=== PATIENT | female | born 1990 | race Caucasian/White ===

== ENCOUNTER 2017-01-17 23:04 | Inpatient (IN) ==
[2017-01-17] MEDS ORDERED: Ondansetron 4 MG/2 ML VIAL IVP ONE (23:34)
[2017-01-17] MEDS ORDERED: Naloxone 0.4 MG/ML INJ IVP ONE (23:34)
[2017-01-17] MEDS ORDERED: 0.9 % Sodium Chloride 1,000 ML IVC ONE (23:34)
--- NOTE | 2017-01-17 23:37 | Emergency Department Note ---
Overdose - Differential Diagnosis Likely: suicide attempt by multiple drug overdose, intentional overdose, accidental drug ingestion - Lab Data Lab results reviewed: Yes I reviewed the patient's lab results. Result diagrams: 01/17/17 23:52 01/17/17 23:52 Lab Results 01/17/17 01/17/17 01/18/17 Range/Units 23:52 23:52 00:41 WBC 6.2 (4.3-11.1) K/mcL RBC 4.59 (3.82-4.97) M/mcL Hgb 14.0 (11.5-15.4) g/dL Hct 41.3 (35.3-44.9) % MCV 90.0 (83.0-100.0) fL MCH 30.5 (28.0-33.3) pg MCHC 33.9 (31.6-35.5) g/dL RDW 12.1 (11.5-14.5) % Plt Count 179 (140-400) K/mcL MPV 9.8 (9.4-12.4) fL Immature Gran % 0.2 (0-4) % Seg Neutrophils % 73.0 % Lymphocytes % 19.9 % Monocytes % 5.7 % Eosinophils % 1.0 % Basophils % 0.2 % Neutrophils # 4.5 (1.6-8.9) K/mcL Lymphocytes # 1.2 (0.6-4.6) K/mcL Monocytes # 0.4 (0.0-1.3) K/mcL Eosinophils # 0.1 (0.0-0.6) K/mcL Basophils # 0.0 (0.0-0.2) K/mcL Sodium 143 (136-145) mEq/L Potassium 3.7 (3.5-4.5) mEq/L Chloride 109 (98-109) mEq/L Carbon Dioxide 25 (19-29) mEq/L BUN 6 L (7-20) mg/dL Creatinine 0.75 (0.57-1.11) mg/dL Est GFR ( Amer) > 60 (> 60) Est GFR (Non-Af Amer) > 60 (> 60) BUN/Creatinine Ratio 8 (6-26) Glucose 94 (70-99) mg/dL Calculated Osmolality 293 (280-300) Calcium 9.3 (8.6-10.8) mg/dL Total Bilirubin 0.4 (0.2-1.2) mg/dL Direct Bilirubin 0.1 (0.0-0.5) mg/dL Indirect Bilirubin 0.3 (0.0-1.2) mg/dL AST 19 (5-34) Units/L ALT 20 (0-55) Units/L Alkaline Phosphatase 43 (38-126) Units/L Serum Total Protein 6.9 (6.0-8.3) g/dL Albumin 3.7 (3.5-5.0) g/dL Globulin 3.2 (2.4-3.5) g/dL Albumin/Globulin Ratio 1.2 (1.1-2.2) Urine Color Yellow (Yellow) Urine Clarity Clear (Clear) Urine pH 7.5 (5.0-8.0) pH Units Ur Specific [place] 1.008 L (1.010-1.025) Urine Protein Negative (Neg-Trace) mg/dL Urine Glucose (UA) Normal (Normal) mg/dL Urine Ketones Negative (Negative) mg/dL Urine Blood Negative (Negative) Urine Nitrite Positive A (Negative) Urine Bilirubin Negative (Negative) Urine Urobilinogen Normal (Normal) mg/dL Ur Leukocyte Esterase Negative (Negative) Urine Microscopic RBC 0-3 (0-3) per hpf Urine Microscopic WBC 0-3 (0-3) per hpf Ur Squamous Epith Cells Few (None-Few) per lpf Urine Bacteria Moderate H (None-Few) per hpf Hyaline Casts None Seen (None-Few) per lpf Urine Yeast Test Not Performed Urine Test (Negative) Salicylates < 5.0 L (15-30) mg/dL Urine Opiates Screen (Tprqiq=608) ng/mL Acetaminophen < 1.0 L (10-30) mcg/mL Ur Barbiturates Screen (Anbsow=031) ng/mL Ur Phencyclidine Scrn (Cutoff=25) ng/mL Ur Amphetamines Screen (Ckvlyh=1590) ng/mL U Benzodiazepines Scrn (Joateu=775) ng/mL Urine Cocaine Screen (Cutoff= 300) ng/mL U Marijuana (THC) Screen (Cutoff = 50) ng/mL Ethyl Alcohol < 10 (0-10) mg/dL 01/18/17 01/18/17 Range/Units 00:41 00:41 WBC (4.3-11.1) K/mcL RBC (3.82-4.97) M/mcL Hgb (11.5-15.4) g/dL Hct (35.3-44.9) % MCV (83.0-100.0) fL MCH (28.0-33.3) pg MCHC (31.6-35.5) g/dL RDW (11.5-14.5) % Plt Count (140-400) K/mcL MPV (9.4-12.4) fL Immature Gran % (0-4) % Seg Neutrophils % % Lymphocytes % % Monocytes % % Eosinophils % % Basophils % % Neutrophils # (1.6-8.9) K/mcL Lymphocytes # (0.6-4.6) K/mcL Monocytes # (0.0-1.3) K/mcL Eosinophils # (0.0-0.6) K/mcL Basophils # (0.0-0.2) K/mcL Sodium (136-145) mEq/L Potassium (3.5-4.5) mEq/L Chloride (98-109) mEq/L Carbon Dioxide (19-29) mEq/L BUN (7-20) mg/dL Creatinine (0.57-1.11) mg/dL Est GFR ( Amer) (> 60) Est GFR (Non-Af Amer) (> 60) BUN/Creatinine Ratio (6-26) Glucose (70-99) mg/dL Calculated Osmolality (280-300) Calcium (8.6-10.8) mg/dL Total Bilirubin (0.2-1.2) mg/dL Direct Bilirubin (0.0-0.5) mg/dL Indirect Bilirubin (0.0-1.2) mg/dL AST (5-34) Units/L ALT (0-55) Units/L Alkaline Phosphatase (38-126) Units/L Serum Total Protein (6.0-8.3) g/dL Albumin (3.5-5.0) g/dL Globulin (2.4-3.5) g/dL Albumin/Globulin Ratio (1.1-2.2) Urine Color (Yellow) Urine Clarity (Clear) Urine pH (5.0-8.0) pH Units Ur Specific [place] (1.010-1.025) Urine Protein (Neg-Trace) mg/dL Urine Glucose (UA) (Normal) mg/dL Urine Ketones (Negative) mg/dL Urine Blood (Negative) Urine Nitrite (Negative) Urine Bilirubin (Negative) Urine Urobilinogen (Normal) mg/dL Ur Leukocyte Esterase (Negative) Urine Microscopic RBC (0-3) per hpf Urine Microscopic WBC (0-3) per hpf Ur Squamous Epith Cells (None-Few) per lpf Urine Bacteria (None-Few) per hpf Hyaline Casts (None-Few) per lpf Urine Yeast Urine Test Negative (Negative) Salicylates (15-30) mg/dL Urine Opiates Screen Positive H (Cvbahy=779) ng/mL Acetaminophen (10-30) mcg/mL Ur Barbiturates Screen Negative (Vqhgux=590) ng/mL Ur Phencyclidine Scrn Negative (Cutoff=25) ng/mL Ur Amphetamines Screen Negative (Cxvegx=9973) ng/mL U Benzodiazepines Scrn Positive H (Csjand=934) ng/mL Urine Cocaine Screen Negative (Cutoff= 300) ng/mL U Marijuana (THC) Screen Negative (Cutoff = 50) ng/mL Ethyl Alcohol (0-10) mg/dL - Radiology Data Radiology results reviewed: Yes I reviewed the patient's radiology results. - EKG Data EKG attestation: Yes I reviewed and interpreted this EKG. Overdose HPI - General Chief Complaint: ED Overdose Stated Complaint: med overdose Time Seen by Provider: 01/17/17 23:33 Source: EMS Mode of arrival: EMS Limitations: altered mental status Nursing Notes Reviewed: Yes Vital Signs Reviewed: Yes - History of Present Illness HPI Narrative: 26-year-old female patient presents to the emergency department after an overdose on benzodiazepines. Patient states that she took approximately 72 mg Xanax. She denies any additional drug or alcohol use. Family at the bedside states that patient has had a history of substance abuse in the past. She denies any recent head injury. She denies any recent illnesses. 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 Constitutional: Denies: fever, chills Cardiovascular: Denies: chest pain Respiratory: Denies: cough, dyspnea Gastrointestinal: Reports: vomiting. Denies: abdominal pain, nausea Musculoskeletal: Denies: back pain, neck pain Integumentary: Denies: rash, abrasion, lesions Neurological: Reports: confusion. Denies: headache Past Medical History - Past Medical History Attestation: Yes The following information was validated with the patient. Source: patient, nursing notes reviewed Medical history: Reports: no medical history Psychiatric history: Reports: anxiety, depression RETINA SUBSPECIALIST history: Reports: no RETINA SUBSPECIALIST history - Social History Smoking Status: Current every day smoker Smokeless Tobacco Status: No Alcohol use: Reports: none Drug use: Reports: opiates, IVDU, other Physical Exam - General Limitations: altered mental status General appearance: alert, anxious, obtunded, other (Somnolent) - Head Head exam: atraumatic, normocephalic, normal inspection - Eye Eye exam: Present: normal appearance, PERRL - ENT ENT exam: normal exam, normal oropharynx, mucous membranes moist - Neck Neck exam: Present: normal inspection, full ROM, trachea midline - Chest Chest inspection: Present: normal inspection, symmetric chest wall rise - Respiratory Respiratory exam: Present: normal lung sounds bilaterally. Absent: respiratory distress - Cardiovascular Cardiovascular exam: Present: regular rate, normal rhythm, normal heart sounds - Extremities Exam Extremities exam: Present: normal inspection, full ROM. Absent: tenderness, pedal edema - Expanded Lower Extremity Exam Gait: observed and normal - Back Exam Back exam: Present: normal inspection, full ROM. Absent: tenderness - Expanded Neurological Exam Patient oriented to: Present: person. Absent: place, time Coma Scale Eye Opening: Spontaneous Coma Scale Motor Response: Obeys Commands Coma Scale Verbal Response: Confused Coma Scale Total: 14 - Psychiatric Psychiatric exam: Present: other (Somnolence but easily arousable to voice.) - Skin Skin exam: Present: warm, dry, intact, normal color Course Course Narrative: I discussed the patient's presentation with poison control. Poison control states that patient should be medically cleared after only taking that amount of benzos with normal labs and a normal EKG. Later I discussed with the hospitalist, Dr. Burroughs, that patient still has not returned to her baseline after 5 hours of observation. Patient will be admitted for further observation and once she returns to her baseline may be evaluated by psychiatry to see if this was not an accidental overdose, rather a suicidal attempt. Vital Signs Temperature 0 F L 01/17/17 23:06 Pulse Rate 82 01/17/17 23:06 Respiratory Rate 16 01/17/17 23:06 Blood Pressure 127/96 01/17/17 23:06 O2 Sat by Pulse Oximetry 97 01/17/17 23:06 Temperature 97.4 F L 01/18/17 05:10 Pulse Rate 116 01/18/17 05:10 Respiratory Rate 16 01/18/17 05:10 Blood Pressure 119/91 01/18/17 05:10 O2 Sat by Pulse Oximetry 95 01/18/17 05:10 Oxygen Delivery Oxygen Delivery Room Air Disposition Clinical Impression: Drug overdose Disposition: Admitted As Inpatient Condition: Fair Time of Disposition: 04:08 Attestation Statement - Attestation Attestation: I, Ubaldo Vaughn MD, personally performed a history and physical exam of the patient and discussed their management with the midlevel provicer, PAC/STAGE SET DESIGNER. I reviewed the midlevel provider's note and agree with the documented findings, medical decision making, and plan of care. 26-year-old female presented to the emergency department by ambulance after an overdose of Xanax. Patient evaluated in the emergency department and observed for several hours. She continues to remain somnolent. She arouses but is confused and disoriented. On examination patient is a well-developed well-nourished young female in no acute distress. She is drowsy but responds to verbal stimuli. There is no cyanosis or diaphoresis. Breath sounds are clear and equal bilaterally. Heart regular rate and rhythm. Abdomen soft and nontender with normal bowel sounds. No gross focal neurological deficits. Labs reviewed. The hospitalist, Dr. Burroughs, was consulted and accepted admission of the patient.
[2017-01-18 00:02] LABS: Basophils % 0.2 %; Eosinophils # 0.1 K/mcL (0.0-0.6); Hematocrit 41.3 % (35.3-44.9); Immature Granulocytes % 0.2 % (0-4); Lymphocytes # 1.2 K/mcL (0.6-4.6); Lymphocytes % 19.9 %; Mean Corpuscular HGB Conc 33.9 g/dL (31.6-35.5); Mean Corpuscular Hemoglobin 30.5 pg (28.0-33.3); Mean Platelet Volume 9.8 fL (9.4-12.4); Monocytes # 0.4 K/mcL (0.0-1.3); Monocytes % 5.7 %; Neutrophils # 4.5 K/mcL (1.6-8.9); Platelet Count 179 K/mcL (140-400); Red Blood Count 4.59 M/mcL (3.82-4.97); Red Cell Distribution Width 12.1 % (11.5-14.5)
[2017-01-18 00:20] LABS: Alanine Aminotransferase 20 Units/L (0-55); Albumin 3.7 g/dL (3.5-5.0); Albumin/Globulin Ratio 1.2 (1.1-2.2); Alkaline Phosphatase 43 Units/L (38-126); Aspartate Amino Transferase 19 Units/L (5-34); BUN/Creatinine Ratio 8 (6-26); Bilirubin,Direct 0.1 mg/dL (0.0-0.5); Bilirubin,Indirect 0.3 mg/dL (0.0-1.2); Bilirubin,Total 0.4 mg/dL (0.2-1.2); Blood Urea Nitrogen 6 mg/dL (7-20); Calcium 9.3 mg/dL (8.6-10.8); Carbon Dioxide 25 mEq/L (19-29); Chloride 109 mEq/L (98-109); Globulin 3.2 g/dL (2.4-3.5); Glucose 94 mg/dL (70-99); Osmolality,Calculated 293 (280-300); Potassium 3.7 mEq/L (3.5-4.5); Sodium 143 mEq/L (136-145); Total Protein 6.9 g/dL (6.0-8.3); eGFR For African Americans > 60 (> 60); eGFR For Non-African Americans > 60 (> 60)
[2017-01-18 00:30] LABS: Acetaminophen < 1.0 mcg/mL (10-30); Ethanol < 10 mg/dL (0-10); Salicylate < 5.0 mg/dL (15-30)
[2017-01-18 00:50] LABS: Bilirubin,Urine Negative (Negative); Blood,Urine Negative (Negative); Clarity,Urine Clear (Clear); Color,Urine Yellow (Yellow); Glucose,Urine (UA) Normal (Normal); Ketones,Urine Negative (Negative); Leukocyte Esterase,Urine Negative (Negative); Nitrite,Urine Positive (Negative); PH,Urine 7.5 pH Units (5.0-8.0); Protein,Urine Negative (Neg-Trace); Specific Gravity,Urine 1.008 (1.010-1.025); Urobilinogen,Urine Normal (Normal)
[2017-01-18 00:53] LABS: Bacteria,Urine Moderate per hpf (None-Few); Hyaline Casts,Urine None Seen per lpf (None-Few); RBC,Urine 0-3 per hpf (0-3)
[2017-01-18 00:57] LABS: Amphetamine Screen,Urine Negative ng/mL (Cutoff=1000); Barbiturate Screen,Urine Negative ng/mL (Cutoff=200); Benzodiazepines Screen,Urine Positive ng/mL (Cutoff=200); Cannabinoid Screen,Urine Negative ng/mL (Cutoff = 50); Cocaine Screen,Urine Negative ng/mL (Cutoff= 300); Opiate Screen,Urine Positive ng/mL (Cutoff=300); Phencyclidine Screen,Urine Negative ng/mL (Cutoff=25)
[2017-01-18 01:03] LABS: Squamous Epithelial Cell,Urine Few per lpf (None-Few); WBC,Urine 0-3 per hpf (0-3)
[2017-01-18] MEDS ORDERED: Naloxone 0.4 MG/ML INJ IVP PRN (04:33)
[2017-01-18] MEDS ORDERED: Ondansetron 4 MG/2 ML VIAL IVP PRN ×2 (04:33→15:58)
--- NOTE | 2017-01-18 04:41 | Internal Med History&Physical ---
Date of Encounter: 01/18/17 Time of Encounter: 04:39 Assessment and Plan (1) Benzodiazepine overdose Current visit: Yes Status: Acute We will place the patient on observation. Close and frequent neurological monitoring. Withdrawal precautions. She seizure precautions. IV fluids. It is unclear at this time there was any suicidal ideation the patient denied suicidal intent when I asked her. She did admit to being more depressed. We will provide supportive care and once the patient is more alert we will reevaluate and consult psychiatry if there is any evidence of suicidal ideation. At this point psychiatry was not consulted. she has high risk for morbidity and complications due to acute and sudden altered mental status Qualifiers: Encounter type: initial encounter Injury intent: undetermined intent Qualified Code(s): T42.4X4A - Poisoning by benzodiazepines, undetermined, initial encounter (2) Acute metabolic encephalopathy Current visit: Yes Status: Acute Aspiration and seizure precautions. Avoid sedatives. Supportive care. (3) DVT prophylaxis Current visit: Yes Status: Acute Subcutaneous Lovenox. Internal Medicine - H&P: HPI Chief complaint: Altered mental status Admitted From: Emergency Dept Plans for Post Hospital Care: Home History of present illness: Ms. Frazier is a 26 year old female with no significant past medical history was brought in by EMS for drug overdose and altered mental status. The patient is arousable and answers basic questions. History is limited due to confusion. She has been delirious and is only oriented to self. Per the emergency department staff she was brought and with a complaint of taking 7 pills of 2 mg of Xanax, and there was no reported suicidal ideation. Patient has not been somnolent and difficult to arouse and when aroused she started having was reported as auditory and visual hallucinations. We were asked to admit the patient for observation. Past medical family social histories and review of systems Limited due to patient's altered mental status. Past Med Surg Social Fam HX - Past Medical History Medical history: no medical history Psychiatric history: anxiety, depression - Social History Smoking Status: Current every day smoker Smokeless Tobacco Status: No Alcohol use: none Drug use: opiates, IVDU, other Internal Medicine - H&P: Meds Allergies No Known Allergies Allergy (Verified 03/24/16 19:19) All Systems PM: A 10-system review of systems was performed and is negative for pertinent findings except as documented above in the HPI. - Constitutional Vitals: Temp Pulse Resp BP Pulse Ox 0 F L 91 18 137/80 97 01/17/17 23:06 01/18/17 03:52 01/18/17 03:52 01/18/17 03:52 01/18/17 03:52 General appearance: Present: A&O X 1, disheveled - Respiratory Respiratory exam: Present: CTAB. Absent: accessory muscle use, rales, rhonchi, wheezes - Cardiovascular Cardiovascular exam: Present: RRR, +S1, +S2. Absent: diastolic murmur, gallop, rubs, systolic murmur - GI/Abdominal GI/Abdominal exam: Present: normal bowel sounds, soft, no peritoneal signs. Absent: distended, tenderness - Extremities Exam Extremities exam: Present: warm, radial pulses palpable and symetrical. Absent : calf tenderness, cyanotic, pedal edema - Neurological Exam Neurological exam: Present: CN II-XII intact, no focal deficits. Absent: facial droop, speech deficit - Skin Skin exam: Present: dry, intact Internal Med - H&P Results - Labs CBC & Chem 7: 01/17/17 23:52 01/17/17 23:52
[2017-01-18] MEDS: 0.9 % Sodium Chloride 1,000 ML IVC SCH ×2 (05:23→17:15)
--- NOTE | 2017-01-18 14:24 | Discharge Summary ---
Date of Encounter: 01/18/17 Time of Encounter: 13:00 - Discharge Diagnosis (1) Drug overdose Priority: Primary Status: Resolved Comments: Patient states she took 72 mg Xanax tablets to help her fall asleep. She states she has done this several times in the past and states that had her mom left her alone, she would have slept through it and woken up just fine. She denies any suicidal or homicidal ideations. (2) Acute metabolic encephalopathy Priority: Primary Status: Resolved Comments: Alert and oriented 3 on day of discharge, tolerated a regular diet. (3) Abnormal urinalysis Priority: Primary Status: Acute Comments: Patient denies dysuria (4) Pneumonia Priority: Primary Status: Acute Comments: Patient saying she has had a cough for approximately 1 week that is intermittently productive. Chest x-ray with right lower lobe opacity, we will treat for early pneumonia and send her with levofloxacin. (5) Benzodiazepine overdose Priority: Primary Status: Resolved Qualifiers: Encounter type: initial encounter Injury intent: undetermined intent Qualified Code(s): T42.4X4A - Poisoning by benzodiazepines, undetermined, initial encounter (6) DVT prophylaxis Priority: Primary Status: Acute Comments: Observation patient - Discharge Medications Prescriptions: Levofloxacin 750 mg PO DAILY #7 tablet Home Medications: Levofloxacin 750 mg PO DAILY #7 tablet 01/18/17 [Rx] Allergies/Adverse Reactions: Allergies No Known Allergies Allergy (Verified 03/24/16 19:19) Date of admission: 01/18/17 04:26 Primary care physician: PCP NO Consults: 01/18/17 11:19 Consult to Timber Mill Worker [CONS] Routine Reason for SW Consult: patient mental health 01/18/17 14:17 Consult to Psychiatry [CONS] Routine Consulting Provider: Psychiatry [place] Reason for Consult: Admitted for OD and recently lost custody of Children Call Completed: Yes Discharging clinician: Hui Hall Anticipated date of discharge: 01/18/17 - Patient Status Disposition: Home, Self-Care Condition: Fair Functional capacity at discharge: independent ambulation Overall status at discharge: patient is back to baseline - Discharge Instructions Follow Up With: NO,PCP [Primary Care Provider] - Additional Instructions: Follow-up with primary care provider in one to 2 weeks - Diet and Activity Activity: increase activity as tolerated Diet: regular diet Hospital course: Ms. Frazier is a 26 year old female with past medical history of IV drug abuse, opiate abuse, tobacco abuse, anxiety and depression. Patient was brought into the emergency department per EMS for drug overdose and altered bowel status. While in the emergency department, patient was experiencing auditory and visual hallucinations. She states she took 7 pills of 2 mg Xanax in an attempt to help her sleep. She was admitted to the hospitalist service for further evaluation and management. Head CT negative. Chest x-ray with opacities right lower lobe. Patient states she had had a cough for 1 week prior to presentation so she was treated for pneumonia with levofloxacin. She did not require supplemental oxygenation. She was able to tolerate a regular diet prior to discharge. She was alert and oriented 3 shortly after being admitted. She denied any suicidal or homicidal ideations. She states she has taken this many Xanax in the past and did not have any issues. She declined any type of counseling but resources given to her per social insurance administrator. She did not exhibit any seizure like activity while admitted. She was discharged home in stable condition with close outpatient follow-up recommended. ITS Impressions Head CT 01/17/17 23:34 IMPRESSION: No acute intracranial abnormality. D/ / Oscar Crowell MD / Oscar Crowell MD Interpreting Provider: Oscar Crowell MD Chest X-Ray 01/18/17 00:00 IMPRESSION: 1. Opacity in medial right lower lobe which may reflect pneumonia or partial atelectasis. D/ / Oscar Crowell MD / Oscar Crowell MD Interpreting Provider: Oscar Crowell MD - Time Spent with Patient Total time spent providing and/or coordinating discharge services: - Constitutional Vitals: Temp Pulse Resp BP Pulse Ox 97.9 F 98 18 137/88 94 L 01/18/17 11:54 01/18/17 11:54 01/18/17 11:54 01/18/17 11:54 01/18/17 11:54 General appearance: Present: disheveled, morbidly obese, no acute distress, answers questions appropriately - Head Head exam: Present: atraumatic, normocephalic - Eye Eye exam: Present: PERRL, conjuntiva pink, sclera anicteric Pupils: Present: PERRL - Neck Neck exam general surgery: Present: supple, trachea midline. Absent: lymphadenopathy - Respiratory Respiratory exam: Present: decreased breath sounds. Absent: accessory muscle use, rales, respiratory distress, rhonchi, wheezes - Cardiovascular Cardiovascular exam: Present: RRR, +S1, +S2. Absent: diastolic murmur, gallop, rubs, systolic murmur - GI/Abdominal GI/Abdominal exam: Present: normal bowel sounds, soft, no peritoneal signs. Absent: distended, tenderness - Extremities Exam Extremities exam: Present: warm, radial pulses palpable and symetrical. Absent : calf tenderness, cyanotic, pedal edema - Neurological Exam Neurological exam: Present: alert, CN II-XII intact, normal gait, oriented X3, no focal deficits, strengths equal and symetr throughout. Absent: pronater drift, facial droop, speech deficit - Skin Skin exam: Present: dry, intact, pallor, warm
[2017-01-18] MEDS ORDERED: *HR* LORazepam 2 MG/ML VIAL IVP PRN ×2 (15:56)
[2017-01-18] MEDS ORDERED: *HR* Promethazine 25 MG/ML VIAL IVP PRN (15:56)
[2017-01-19] MEDS: 0.9 % Sodium Chloride 1,000 ML IVC SCH ×3 (03:16→19:52)
[2017-01-19 05:08] LABS: Basophils % 0.2 %; Eosinophils % 0.2 %; Hematocrit 40.1 % (35.3-44.9); Hemoglobin 13.9 g/dL (11.5-15.4); Immature Granulocytes % 0.2 % (0-4); Lymphocytes # 1.7 K/mcL (0.6-4.6); Lymphocytes % 30.1 %; Mean Corpuscular HGB Conc 34.7 g/dL (31.6-35.5); Mean Corpuscular Hemoglobin 30.1 pg (28.0-33.3); Mean Corpuscular Volume 86.8 fL (83.0-100.0); Monocytes # 0.4 K/mcL (0.0-1.3); Monocytes % 6.5 %; Neutrophils # 3.5 K/mcL (1.6-8.9); Platelet Count 201 K/mcL (140-400); Red Blood Count 4.62 M/mcL (3.82-4.97); Red Cell Distribution Width 11.9 % (11.5-14.5); Segmented Neutrophils % 62.8 %
[2017-01-19 05:19] LABS: BUN/Creatinine Ratio 11 (6-26); Blood Urea Nitrogen 7 mg/dL (7-20); Calcium 8.8 mg/dL (8.6-10.8); Carbon Dioxide 19 mEq/L (19-29); Chloride 111 mEq/L (98-109); Glucose 90 mg/dL (70-99); Magnesium 1.8 mg/dL (1.6-2.6); Osmolality,Calculated 290 (280-300); Potassium 3.2 mEq/L (3.5-4.5); Sodium 141 mEq/L (136-145); eGFR For African Americans > 60 (> 60); eGFR For Non-African Americans > 60 (> 60)
[2017-01-19 05:39] LABS: Platelet Estimate Normal (Normal); Reactive Lymphocytes Present (Not Present)
[2017-01-19] MEDS ORDERED: Potassium Chloride 40 MEQ, Lidocaine 1% 2 ML in D5% in Water 500 ML IVPB ONE (07:37)
--- NOTE | 2017-01-19 10:54 | Internal Med Progress Note ---
Date of Encounter: 01/19/17 Time of Encounter: 09:15 - Assessment and plan (1) Acute metabolic encephalopathy Current Visit: Yes Status: Acute Assessment and plan: 1 the patient can be lucid at times, she is definitely still having regular periods of confusion, delusions, and hallucinations. Patient continues to speak to a man that is not on the room. She informed me earlier that she was seen by the psychiatrist because she states that "a foreign lizbeth came in and gave me a bunch of shots." She has not yet been seen by psychiatry at this point. Most of her speech is unintelligible although she is able to answer simple questions regarding orientation. Her mother was present yesterday and stated that the patient had just concluded a 6 day "maynard" at which time she had heavy drug usage. Examination consistent with acute N0 withdrawal and sleep deprivation. Appreciate psychiatry recommendations. Head CT negative. Chest x-ray with possible pneumonia to right lower lobe, treating with levofloxacin. Current delirium and altered mental state do not appear to be of infectious etiology and more consistent with withdrawal, sleep deprivation, and mental health issues. ITS Impressions Head CT 01/17/17 23:34 IMPRESSION: No acute intracranial abnormality. D/ / Oscar Crowell MD / Oscar Crowell MD Interpreting Provider: Oscar Crowell MD Chest X-Ray 01/18/17 00:00 IMPRESSION: 1. Opacity in medial right lower lobe which may reflect pneumonia or partial atelectasis. D/ / Oscar Crowell MD / Oscar Crowell MD Interpreting Provider: Oscar Crowell MD (2) Pneumonia Current Visit: Yes Status: Acute Assessment and plan: Chest x-ray revealing opacities to the right lower lobe. Given that patient had overdosed and possibly aspirated, we will treat for pneumonia. Treating with levofloxacin. ITS Impressions Chest X-Ray 01/18/17 00:00 IMPRESSION: 1. Opacity in medial right lower lobe which may reflect pneumonia or partial atelectasis. D/ / Oscar Crowell MD / Oscar Crowell MD Interpreting Provider: Oscar Crowell MD (3) Drug overdose Current Visit: Yes Status: Resolved Assessment and plan: Continue Ativan as needed as well as anti-emetics. She remains delusional and continues to be paranoid and speak to people who were not present in the room. Psychiatry is on board, appreciate their recommendations. No signs of seizures. (4) Abnormal urinalysis Current Visit: Yes Status: Acute Assessment and plan: Patient denies dysuria, we will repeat urinalysis and culture if indicated (5) Benzodiazepine overdose Current Visit: Yes Status: Resolved Qualifiers: Encounter type: initial encounter Injury intent: undetermined intent Qualified Code(s): T42.4X4A - Poisoning by benzodiazepines, undetermined, initial encounter (6) DVT prophylaxis Current Visit: Yes Status: Acute Assessment and plan: Subcutaneous Lovenox ordered - Subjective Interval history: Patient seen and examined. On examination, patient resting in bed. Patient alert and oriented 3 but confused at times. She currently denies pain and stating that her legs are just restless. She states she does not have an appetite right now. She continues to deny suicidal or homicidal ideations. - Constitutional Vitals: Temp Pulse Resp BP Pulse Ox 98.3 F 76 16 149/96 95 01/19/17 04:00 01/19/17 04:00 01/19/17 04:00 01/19/17 04:00 01/19/17 04:00 General appearance: Present: disheveled, morbidly obese, no acute distress, answers questions appropriately - Head Head exam: Present: atraumatic, normocephalic - Eye Eye exam: Present: PERRL, conjuntiva pink, sclera anicteric Pupils: Present: PERRL - Neck Neck exam general surgery: Present: supple, trachea midline. Absent: lymphadenopathy - Respiratory Respiratory exam: Present: decreased breath sounds. Absent: accessory muscle use, rales, respiratory distress, rhonchi, wheezes - Cardiovascular Cardiovascular exam: Present: RRR, +S1, +S2. Absent: diastolic murmur, gallop, rubs, systolic murmur - GI/Abdominal GI/Abdominal exam: Present: normal bowel sounds, soft, no peritoneal signs. Absent: distended, tenderness - Extremities Exam Extremities exam: Present: warm, radial pulses palpable and symetrical. Absent : calf tenderness, cyanotic, pedal edema - Neurological Exam Neurological exam: Present: alert, altered, CN II-XII intact, oriented X3, no focal deficits, strengths equal and symetr throughout. Absent: pronater drift, facial droop, speech deficit - Expanded Neurological Exam Neurological exam expanded: Present: protecting the airway Patient oriented to: Present: person, place, time Neuro motor strength exam: LUE: 5, RUE: 5, LLE: 5, RLE: 5 Coma Scale Eye Opening: Spontaneous Coma Scale Motor Response: Obeys Commands Coma Scale Verbal Response: Oriented Coma Scale Total: 15 - Psychiatric Psychiatric exam: Present: agitated. Absent: suicidal ideation - Expanded Psychiatric Exam Focused psych exam: Present: delusional, flight of ideas, loose associations, paranoid, pressured speech, psychomotor agitation, restlessness - Skin Skin exam: Present: dry, intact, pallor, warm Internal Medicine: Result - Labs CBC & Chem 7: 01/19/17 04:21 01/19/17 04:21 Labs: Short CBC 01/19/17 Range/Units 04:21 WBC 5.5 (4.3-11.1) K/mcL Hgb 13.9 (11.5-15.4) g/dL Hct 40.1 (35.3-44.9) % Plt Count 201 (140-400) K/mcL Neutrophils # 3.5 (1.6-8.9) K/mcL BMP 01/19/17 04:21 Sodium 141 Potassium 3.2 L Chloride 111 H Carbon Dioxide 19 BUN 7 Creatinine 0.65 Glucose 90 Calcium 8.8 Consult Discharge Plan - Plan Instructions: Benzodiazepine Abuse (DC), Narcotic Abuse (DC) Additional Instructions: Follow-up with primary care provider in one to 2 weeks Follow-up appointments: If there is not an appointment listed below, please call your physician and schedule a follow-up appointment. If you have congestive heart failure and your symptoms return, make an appointment with your physician. Symptoms: If your condition changes or you experience any of the following symptoms, notify your physician immediately: Unusual or worsening pain, fever, persistent nausea and vomiting, bleeding, increase in swelling (especially in your legs), sudden weight gain, extreme dizziness, chest pain, increased drainage or redness from a wound or incision. Go to the emergency department if you experience a problem with breathing. Weights: If you have a history of swelling or shortness of breath, weigh yourself daily and notify your physician if you have a weight gain of two or more pounds in one day or 5 or more pounds in a week. If you experience any of the warning signs for stroke: Sudden numbness or weakness of the face, arm or leg; especially on one side of the body, sudden confusion, trouble speaking or understanding, sudden trouble seeing in one or both eyes, sudden trouble walking, dizziness, loss of balance or coordination, sudden sever headache with no cause; Call 911 or go to the emergency room. Stroke is a medical emergency. Some risk factors for stroke: Age, cigarette smoking, diabetes, excessive alcohol consumption, family history , high blood pressure, overweight, physical inactivity, prior stroke, heart attack, diagnosis of carotid artery stenosis or other artery disease. If you smoke, STOP: Smoking or tobacco use significantly increases your risk of heart and lung disease. Your chance of disease greatly increases if you continue to smoke. For more information, call the [place] tobacco quit line for smoking cessation QUIT-NOW ( ) Referrals: NO,PCP [Primary Care Provider] - (Please call the physician referral line at [phone]. Please call to schedule an appointment in 5-7 days. ) Prescriptions: Levofloxacin 750 mg PO DAILY #7 tablet
[2017-01-19] MEDS: Levofloxacin 750 MG/150 ML 750 MG/150 ML BAG IVPB SCH (12:31)
--- NOTE | 2017-01-19 15:54 | Consult Note ---
Date of Encounter: 01/19/17 Time of Encounter: 15:30 Assessment & Recommendation (1) Benzodiazepine overdose Current visit: Yes Status: Resolved Assessment & Recommendation: At this time patient is still unstable, experiencing visual hallucinations on and off and possibly auditory hallucination most likely resulting from benzodiazepine withdrawal, patient also used Suboxone and possibly other drugs. On interview she denies suicidal intent and also denies any previous treatment for depression or anxiety but she admits to at least 4 years of heavy drug use with her boyfriend. Social work indicates that children services are involved with possibility of removing the children from her custody. At this time I will follow up on her condition and provides final recommendations including possibility of placement in drug rehabilitation program. Thank you for the consult. Qualifiers: Encounter type: initial encounter Injury intent: undetermined intent Qualified Code(s): T42.4X4A - Poisoning by benzodiazepines, undetermined, initial encounter History of Present Illness Patient: new to practice Requesting Physician: Hui Yeh Reason for consult: questionable overdose History of present illness: Ms. Frazier is a 26 year old female admitted from the emergency room to medical floor for evaluation of a change in mental status was possibility of overdose patient later admitted that she overdosed on Xanax and opiates but denied that this was suicide attempt. Patient has long history of multidrug use and dependence including heroin and cocaine marijuana benzodiazepine and and other opiates. Patient denied any previous history of psychiatric treatments or admission to psychiatry. Nursing staff reports that her mother is concerned and believes that she is considering suicide if her children custody was taken from her. merchant mill utility worker on the medical floor indicates that children services are involved and the case is open with possibility of taking children are with her for custody. Patient was reported by nursing staff benefits she experiencing visual and auditory hallucinations on and off but she was alert and awake during her interview. CC: Hui Yeh Past Med Surg Social Fam HX - Past Medical History Medical history: no medical history - Past Psychiatric History Psychiatric history: Reports: no psych history - Past Surgical History Surgical History: no surgical history - Social History Smoking Status: Current every day smoker Smokeless Tobacco Status: No Alcohol use: none Drug use: opiates, IVDU, other Medications & Allergies Levofloxacin 750 mg PO DAILY #7 tablet 01/18/17 [Rx] Allergies No Known Allergies Allergy (Verified 03/24/16 19:19) Review of Systems Psychiatric: Reports: abnormal sleep pattern, visual hallucinations, confusion. Denies: suicidal ideation Mental Status Exam Patient orientation: Yes Person, Yes Time, Yes Place Level of alertness: Alert Patient appearance: Appropriate, Unkempt Behavior: cooperative, nervous, restless Psychomotor activity: Increased Eye contact: Fleeting Contact Mood description: Euthymic/stable, Anxious Affect description: dysphoric, anxious Speech pattern: Normal rate, Normal rhythm, Normal tone Speech volume: Normal Thought process: Logical, Tangential, Racing Thought content: No Suicidal ideation, No Homicidal ideation, No Overt delusions Perceptual disturbances: Yes Auditory hallucinations, Yes Visual hallucinations Attention span: Unable to Focus Memory description: Immediate Impaired, Recent Impaired Patient reliability: Questionable Historian Intelligence estimate: Average Judgment: Limited Insight: Partial Results - Vital Signs Vital signs: Temp Pulse Resp BP Pulse Ox 98.3 F 76 16 149/96 95 01/19/17 04:00 01/19/17 04:00 01/19/17 04:00 01/19/17 04:00 01/19/17 04:00 - Labs Labs: Laboratory Last Values WBC 5.5 K/mcL (4.3-11.1) 01/19/17 04:21 RBC 4.62 M/mcL (3.82-4.97) 01/19/17 04:21 Hgb 13.9 g/dL (11.5-15.4) 01/19/17 04:21 Hct 40.1 % (35.3-44.9) 01/19/17 04:21 MCV 86.8 fL (83.0-100.0) 01/19/17 04:21 MCH 30.1 pg (28.0-33.3) 01/19/17 04:21 MCHC 34.7 g/dL (31.6-35.5) 01/19/17 04:21 RDW 11.9 % (11.5-14.5) 01/19/17 04:21 Plt Count 201 K/mcL (140-400) 01/19/17 04:21 MPV 10.0 fL (9.4-12.4) 01/19/17 04:21 Immature Gran % 0.2 % (0-4) 01/19/17 04:21 Seg Neutrophils % 62.8 % 01/19/17 04:21 Lymphocytes % 30.1 % 01/19/17 04:21 Monocytes % 6.5 % 01/19/17 04:21 Eosinophils % 0.2 % 01/19/17 04:21 Basophils % 0.2 % 01/19/17 04:21 Neutrophils # 3.5 K/mcL (1.6-8.9) 01/19/17 04:21 Lymphocytes # 1.7 K/mcL (0.6-4.6) 01/19/17 04:21 Monocytes # 0.4 K/mcL (0.0-1.3) 01/19/17 04:21 Eosinophils # 0.0 K/mcL (0.0-0.6) 01/19/17 04:21 Basophils # 0.0 K/mcL (0.0-0.2) 01/19/17 04:21 Reactive Lymphocytes Present (Not Present) A 01/19/17 04:21 Platelet Estimate Normal (Normal) 01/19/17 04:21 Sodium 141 mEq/L (136-145) 01/19/17 04:21 Potassium 3.2 mEq/L (3.5-4.5) L 01/19/17 04:21 Chloride 111 mEq/L (98-109) H 01/19/17 04:21 Carbon Dioxide 19 mEq/L (19-29) 01/19/17 04:21 BUN 7 mg/dL (7-20) 01/19/17 04:21 Creatinine 0.65 mg/dL (0.57-1.11) 01/19/17 04:21 Est GFR ( Amer) > 60 (> 60) 01/19/17 04:21 Est GFR (Non-Af Amer) > 60 (> 60) 01/19/17 04:21 BUN/Creatinine Ratio 11 (6-26) 01/19/17 04:21 Glucose 90 mg/dL (70-99) 01/19/17 04:21 Calculated Osmolality 290 (280-300) 01/19/17 04:21 Calcium 8.8 mg/dL (8.6-10.8) 01/19/17 04:21 Magnesium 1.8 mg/dL (1.6-2.6) 01/19/17 04:21 Total Bilirubin 0.4 mg/dL (0.2-1.2) 01/17/17 23:52 Direct Bilirubin 0.1 mg/dL (0.0-0.5) 01/17/17 23:52 Indirect Bilirubin 0.3 mg/dL (0.0-1.2) 01/17/17 23:52 AST 19 Units/L (5-34) 01/17/17 23:52 ALT 20 Units/L (0-55) 01/17/17 23:52 Alkaline Phosphatase 43 Units/L (38-126) 01/17/17 23:52 Serum Total Protein 6.9 g/dL (6.0-8.3) 01/17/17 23:52 Albumin 3.7 g/dL (3.5-5.0) 01/17/17:52 Globulin 3.2 g/dL (2.4-3.5) 01/17/17 23:52 Albumin/Globulin Ratio 1.2 (1.1-2.2) 01/17/17 23:52 Urine Color Yellow (Yellow) 01/18/17 00:41 Urine Clarity Clear (Clear) 01/18/17 00:41 Urine pH 7.5 pH Units (5.0-8.0) 01/18/17 00:41 Ur Specific [place] 1.008 (1.010-1.025) L 01/18/17 00:41 Urine Protein Negative mg/dL (Neg-Trace) 01/18/17 00:41 Urine Glucose (UA) Normal mg/dL (Normal) 01/18/17 00:41 Urine Ketones Negative mg/dL (Negative) 01/18/17 00:41 Urine Blood Negative (Negative) 01/18/17 00:41 Urine Nitrite Positive (Negative) A 01/18/17 00:41 Urine Bilirubin Negative (Negative) 01/18/17 00:41 Urine Urobilinogen Normal mg/dL (Normal) 01/18/17 00:41 Ur Leukocyte Esterase Negative (Negative) 01/18/17 00:41 Urine Microscopic RBC 0-3 per hpf (0-3) 01/18/17 00:41 Urine Microscopic WBC 0-3 per hpf (0-3) 01/18/17 00:41 Ur Squamous Epith Cells Few per lpf (None-Few) 01/18/17 00:41 Urine Bacteria Moderate per hpf (None-Few) H 01/18/17 00:41 Hyaline Casts None Seen per lpf (None-Few) 01/18/17 00:41 Urine Yeast Test Not Performed 01/18/17 00:41 Urine Test Negative (Negative) 01/18/17 00:41 Salicylates < 5.0 mg/dL (15-30) L 01/17/17 23:52 Urine Opiates Screen Positive ng/mL (Lkosci=233) H 01/18/17 00:41 Acetaminophen < 1.0 mcg/mL (10-30) L 01/17/17 23:52 Ur Barbiturates Screen Negative ng/mL (Irckkp=139) 01/18/17 00:41 Ur Phencyclidine Scrn Negative ng/mL (Cutoff=25) 01/18/17 00:41 Ur Amphetamines Screen Negative ng/mL (Uudhne=9555) 01/18/17 00:41 U Benzodiazepines Scrn Positive ng/mL (Cglvft=585) H 01/18/17 00:41 Urine Cocaine Screen Negative ng/mL (Cutoff= 300) 01/18/17 00:41 U Marijuana (THC) Screen Negative ng/mL (Cutoff = 50) 01/18/17 00:41 Ethyl Alcohol < 10 mg/dL (0-10) 01/17/17 23:52 Consult Discharge Plan - Plan Instructions: Benzodiazepine Abuse (DC), Narcotic Abuse (DC) Additional Instructions: Follow-up with primary care provider in one to 2 weeks Follow-up appointments: If there is not an appointment listed below, please call your physician and schedule a follow-up appointment. If you have congestive heart failure and your symptoms return, make an appointment with your physician. Symptoms: If your condition changes or you experience any of the following symptoms, notify your physician immediately: Unusual or worsening pain, fever, persistent nausea and vomiting, bleeding, increase in swelling (especially in your legs), sudden weight gain, extreme dizziness, chest pain, increased drainage or redness from a wound or incision. Go to the emergency department if you experience a problem with breathing. Weights: If you have a history of swelling or shortness of breath, weigh yourself daily and notify your physician if you have a weight gain of two or more pounds in one day or 5 or more pounds in a week. If you experience any of the warning signs for stroke: Sudden numbness or weakness of the face, arm or leg; especially on one side of the body, sudden confusion, trouble speaking or understanding, sudden trouble seeing in one or both eyes, sudden trouble walking, dizziness, loss of balance or coordination, sudden sever headache with no cause; Call 911 or go to the emergency room. Stroke is a medical emergency. Some risk factors for stroke: Age, cigarette smoking, diabetes, excessive alcohol consumption, family history , high blood pressure, overweight, physical inactivity, prior stroke, heart attack, diagnosis of carotid artery stenosis or other artery disease. If you smoke, STOP: Smoking or tobacco use significantly increases your risk of heart and lung disease. Your chance of disease greatly increases if you continue to smoke. For more information, call the [place] tobacco quit line for smoking cessation QUIT-NOW ( ) Referrals: NO,PCP [Primary Care Provider] - (Please call the physician referral line at [phone]. Please call to schedule an appointment in 5-7 days. ) Prescriptions: Levofloxacin 750 mg PO DAILY #7 tablet
--- NOTE | 2017-01-19 17:54 | Electrocardiograph Report ---
[address] [address] Test Date: 2017-01-17 Pat Name: Natasha Frazier Department: 104 Room: 3B24 Gender: F Track Inspector: : 1990 Requested By: Amaury Matias Order Number: [id number] Reading MD: Siena Varghese Measurements Intervals [place] Rate: 71 P: 63 [place]: 132 QRS: 42 QRSD: 79 T: 11 QT: 391 QTc: 413 Interpretive Statements SINUS RHYTHM Electronically Signed On 01-19-2017 17:52:06 EST by Siena Varghese
--- NOTE | 2017-01-19 17:54 | Electrocardiograph Report ---
[place] [address] Test Date: 2017-01-18 Pat Name: Natasha Frazier Department: 104 Room: 3B24 Gender: F Audio Visual Coordinator: : 1990 Requested By: Amaury Matias Order Number: [id number] Reading MD: Siena Varghese Measurements Intervals [place] Rate: 97 P: 71 [place]: 165 QRS: 25 QRSD: 93 T: 30 QT: 364 QTc: 419 Interpretive Statements SINUS RHYTHM Electronically Signed On 01-19-2017 17:52:18 EST by Siena Varghese
[2017-01-20] MEDS: 0.9 % Sodium Chloride 1,000 ML IVC SCH ×2 (01:06→16:00)
[2017-01-20 05:42] LABS: Bilirubin,Urine Negative (Negative); Blood,Urine Large (Negative); Clarity,Urine Cloudy (Clear); Color,Urine Yellow (Yellow); Glucose,Urine (UA) Normal (Normal); Ketones,Urine 40 mg/dL (Negative); Leukocyte Esterase,Urine Negative (Negative); Nitrite,Urine Negative (Negative); PH,Urine 6.5 pH Units (5.0-8.0); Protein,Urine Negative (Neg-Trace); Specific Gravity,Urine 1.019 (1.010-1.025); Urobilinogen,Urine Normal (Normal)
[2017-01-20 05:44] LABS: Bacteria,Urine None Seen per hpf (None-Few); Hyaline Casts,Urine None Seen per lpf (None-Few); Squamous Epithelial Cell,Urine Many per lpf (None-Few)
[2017-01-20 05:53] LABS: RBC,Urine 15-30 per hpf (0-3)
[2017-01-20 06:04] LABS: BUN/Creatinine Ratio 15 (6-26); Blood Urea Nitrogen 11 mg/dL (7-20); Calcium 9.4 mg/dL (8.6-10.8); Carbon Dioxide 21 mEq/L (19-29); Chloride 110 mEq/L (98-109); Glucose 96 mg/dL (70-99); Osmolality,Calculated 293 (280-300); Potassium 3.6 mEq/L (3.5-4.5); Sodium 142 mEq/L (136-145); eGFR For African Americans > 60 (> 60); eGFR For Non-African Americans > 60 (> 60)
[2017-01-20] MEDS: *HR* Enoxaparin 40 MG/0.4 ML SYRINGE SQ SCH (06:17)
[2017-01-20] MEDS: Levofloxacin 750 MG/150 ML 750 MG/150 ML BAG IVPB SCH (10:03)
--- NOTE | 2017-01-20 15:38 | Consult Note ---
Date of Encounter: 01/20/17 Time of Encounter: 15:00 Assessment & Recommendation (1) Benzodiazepine overdose Current visit: Yes Status: Resolved Assessment & Recommendation: Recommend adding Haldol 2 mg by mouth every 6 hours as needed for agitation and confusion. I also recommend using as less benzodiazepine as possible. Otherwise medical management of her pneumonia by the medical team. Please address any questions. Thank you Qualifiers: Encounter type: initial encounter Injury intent: undetermined intent Qualified Code(s): T42.4X4A - Poisoning by benzodiazepines, undetermined, initial encounter History of Present Illness Requesting Physician: Binh Glover Reason for consult: Consult follow-up History of present illness: Ms. Frazier is a 26 year old female seen for follow-up on psychiatric consultation. Review of the notes and nursing staff indicates that the patient still experience delirium with hallucination and delusions. She also is treated for pneumonia with IV antibiotics. There is no report or evidence for suicidal ideation. CC: Binh Glover Past Med Surg Social Fam HX - Past Medical History Medical history: no medical history - Past Surgical History Surgical History: no surgical history - Social History Smoking Status: Current every day smoker Smokeless Tobacco Status: No Alcohol use: none Drug use: opiates, IVDU, other Medications & Allergies Levofloxacin 750 mg PO DAILY #7 tablet 01/18/17 [Rx] Allergies No Known Allergies Allergy (Verified 03/24/16 19:19) Review of Systems Psychiatric: Reports: abnormal sleep pattern, visual hallucinations, confusion. Denies: suicidal ideation Mental Status Exam Patient orientation: Yes Person, Yes Time, Yes Place Level of alertness: Alert Patient appearance: Appropriate, Unkempt Behavior: cooperative, nervous, restless Psychomotor activity: Increased Eye contact: Fleeting Contact Mood description: Euthymic/stable, Anxious Affect description: dysphoric, anxious Speech pattern: Normal rate, Normal rhythm, Normal tone Speech volume: Normal Thought process: Logical, Tangential, Racing Thought content: No Suicidal ideation, No Homicidal ideation, No Overt delusions Perceptual disturbances: Yes Auditory hallucinations, Yes Visual hallucinations Attention span: Unable to Focus Memory description: Immediate Impaired, Recent Impaired Patient reliability: Questionable Historian Intelligence estimate: Average Judgment: Limited Insight: Partial Results - Vital Signs Vital signs: Temp Pulse Resp BP Pulse Ox 98.2 F 63 16 135/94 97 01/20/17 15:00 01/20/17 15:00 01/20/17 15:00 01/20/17 15:00 01/20/17 15:00 - Labs Labs: Laboratory Last Values WBC 5.5 K/mcL (4.3-11.1) 01/19/17 04:21 RBC 4.62 M/mcL (3.82-4.97) 01/19/17 04:21 Hgb 13.9 g/dL (11.5-15.4) 01/19/17 04:21 Hct 40.1 % (35.3-44.9) 01/19/17 04:21 MCV 86.8 fL (83.0-100.0) 01/19/17 04:21 MCH 30.1 pg (28.0-33.3) 01/19/17 04:21 MCHC 34.7 g/dL (31.6-35.5) 01/19/17 04:21 RDW 11.9 % (11.5-14.5) 01/19/17 04:21 Plt Count 201 K/mcL (140-400) 01/19/17 04:21 MPV 10.0 fL (9.4-12.4) 01/19/17 04:21 Immature Gran % 0.2 % (0-4) 01/19/17 04:21 Seg Neutrophils % 62.8 % 01/19/17 04:21 Lymphocytes % 30.1 % 01/19/17 04:21 Monocytes % 6.5 % 01/19/17 04:21 Eosinophils % 0.2 % 01/19/17 04:21 Basophils % 0.2 % 01/19/17 04:21 Neutrophils # 3.5 K/mcL (1.6-8.9) 01/19/17 04:21 Lymphocytes # 1.7 K/mcL (0.6-4.6) 01/19/17 04:21 Monocytes # 0.4 K/mcL (0.0-1.3) 01/19/17 04:21 Eosinophils # 0.0 K/mcL (0.0-0.6) 01/19/17 04:21 Basophils # 0.0 K/mcL (0.0-0.2) 01/19/17 04:21 Reactive Lymphocytes Present (Not Present) A 01/19/17 04:21 Platelet Estimate Normal (Normal) 01/19/17 04:21 Sodium 142 mEq/L (136-145) 01/20/17 04:54 Potassium 3.6 mEq/L (3.5-4.5) 01/20/17 04:54 Chloride 110 mEq/L (98-109) H 01/20/17 04:54 Carbon Dioxide 21 mEq/L (19-29) 01/20/17 04:54 BUN 11 mg/dL (7-20) 01/20/17 04:54 Creatinine 0.73 mg/dL (0.57-1.11) 01/20/17 04:54 Est GFR ( Amer) > 60 (> 60) 01/20/17 04:54 Est GFR (Non-Af Amer) > 60 (> 60) 01/20/17 04:54 BUN/Creatinine Ratio 15 (6-26) 01/20/17 04:54 Glucose 96 mg/dL (70-99) 01/20/17 04:54 Calculated Osmolality 293 (280-300) 01/20/17 04:54 Calcium 9.4 mg/dL (8.6-10.8) 01/20/17 04:54 Magnesium 1.8 mg/dL (1.6-2.6) 01/19/17 04:21 Total Bilirubin 0.4 mg/dL (0.2-1.2) 01/17/17 23:52 Direct Bilirubin 0.1 mg/dL (0.0-0.5) 01/17/17 23:52 Indirect Bilirubin 0.3 mg/dL (0.0-1.2) 01/17/17 23:52 AST 19 Units/L (5-34) 01/17/17 23:52 ALT 20 Units/L (0-55) 01/17/17 23:52 Alkaline Phosphatase 43 Units/L (38-126) 01/17/17 23:52 Serum Total Protein 6.9 g/dL (6.0-8.3) 01/17/17 23:52 Albumin 3.7 g/dL (3.5-5.0) 01/17/17 23:52 Globulin 3.2 g/dL (2.4-3.5) 01/17/17 23:52 Albumin/Globulin Ratio 1.2 (1.1-2.2) 01/17/17 23:52 Urine Color Yellow (Yellow) 01/20/17 05:30 Urine Clarity Cloudy (Clear) A 01/20/17 05:30 Urine pH 6.5 pH Units (5.0-8.0) 01/20/17 05:30 Ur Specific [place] 1.019 (1.010-1.025) 01/20/17 05:30 Urine Protein Negative mg/dL (Neg-Trace) 01/20/17 05:30 Urine Glucose (UA) Normal mg/dL (Normal) 01/20/17 05:30 Urine Ketones 40 mg/dL (Negative) H 01/20/17 05:30 Urine Blood Large (Negative) H 01/20/17 05:30 Urine Nitrite Negative (Negative) 01/20/17 05:30 Urine Bilirubin Negative (Negative) 01/20/17 05:30 Urine Urobilinogen Normal mg/dL (Normal) 01/20/17 05:30 Ur Leukocyte Esterase Negative (Negative) 01/20/17 05:30 Urine Microscopic RBC 15-30 per hpf (0-3) H 01/20/17 05:30 Urine Microscopic WBC 3-5 per hpf (0-3) H 01/20/17 05:30 Ur Squamous Epith Cells Many per lpf (None-Few) H 01/20/17 05:30 Urine Bacteria None Seen per hpf (None-Few) 01/20/17 05:30 Hyaline Casts None Seen per lpf (None-Few) 01/20/17 05:30 Urine Yeast Test Not Performed 01/20/17 05:30 Ur Culture Indicated? NO (NO) 01/20/17 05:30 Urine Test Negative (Negative) 01/18/17 00:41 Salicylates < 5.0 mg/dL (15-30) L 01/17/17 23:52 Urine Opiates Screen Positive ng/mL (Pulfeu=467) H 01/18/17 00:41 Acetaminophen < 1.0 mcg/mL (10-30) L 01/17/17 23:52 Ur Barbiturates Screen Negative ng/mL (Fyzzxm=809) 01/18/17 00:41 Ur Phencyclidine Scrn Negative ng/mL (Cutoff=25) 01/18/17 00:41 Ur Amphetamines Screen Negative ng/mL (Sttpyo=3144) 01/18/17 00:41 U Benzodiazepines Scrn Positive ng/mL (Strowj=891) H 01/18/17 00:41 Urine Cocaine Screen Negative ng/mL (Cutoff= 300) 01/18/17 00:41 U Marijuana (THC) Screen Negative ng/mL (Cutoff = 50) 01/18/17 00:41 Ethyl Alcohol < 10 mg/dL (0-10) 01/17/17 23:52 Consult Discharge Plan - Plan Instructions: Benzodiazepine Abuse (DC), Narcotic Abuse (DC) Additional Instructions: Follow-up with primary care provider in one to 2 weeks Follow-up appointments: If there is not an appointment listed below, please call your physician and schedule a follow-up appointment. If you have congestive heart failure and your symptoms return, make an appointment with your physician. Symptoms: If your condition changes or you experience any of the following symptoms, notify your physician immediately: Unusual or worsening pain, fever, persistent nausea and vomiting, bleeding, increase in swelling (especially in your legs), sudden weight gain, extreme dizziness, chest pain, increased drainage or redness from a wound or incision. Go to the emergency department if you experience a problem with breathing. Weights: If you have a history of swelling or shortness of breath, weigh yourself daily and notify your physician if you have a weight gain of two or more pounds in one day or 5 or more pounds in a week. If you experience any of the warning signs for stroke: Sudden numbness or weakness of the face, arm or leg; especially on one side of the body, sudden confusion, trouble speaking or understanding, sudden trouble seeing in one or both eyes, sudden trouble walking, dizziness, loss of balance or coordination, sudden sever headache with no cause; Call 911 or go to the emergency room. Stroke is a medical emergency. Some risk factors for stroke: Age, cigarette smoking, diabetes, excessive alcohol consumption, family history , high blood pressure, overweight, physical inactivity, prior stroke, heart attack, diagnosis of carotid artery stenosis or other artery disease. If you smoke, STOP: Smoking or tobacco use significantly increases your risk of heart and lung disease. Your chance of disease greatly increases if you continue to smoke. For more information, call the [place] tobacco quit line for smoking cessation -NOW ( ) Referrals: NO,PCP [Primary Care Provider] - (Please call the physician referral line at [phone]. Please call to schedule an appointment in 5-7 days. ) Prescriptions: Levofloxacin 750 mg PO DAILY #7 tablet
--- NOTE | 2017-01-20 16:33 | Internal Med Progress Note ---
<Angelika Worrell - Last Filed: 01/20/17 16:30> Date of Encounter: 01/20/17 Time of Encounter: 11:30 - Assessment and plan (1) Benzodiazepine overdose Current Visit: Yes Status: Resolved Assessment and plan: Patient continues to exhibit symptoms delirium. I spoke to patient at length regarding her drug addiction and possible discharge to rehab facility. 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 Suicidal ideation not present at this time. Plan: Withdrawal precautions Seizure precautions Consult psychiatry, we appreciate recommendations Consult social services assistant, we appreciate recommendations Qualifiers: Encounter type: initial encounter Injury intent: undetermined intent Qualified Code(s): T42.4X4A - Poisoning by benzodiazepines, undetermined, initial encounter (2) Acute metabolic encephalopathy Current Visit: Yes Status: Acute Assessment and plan: Head CT without acute process. Patient with waxing and waning levels of consciousness, hallucinations, and delusions. Appreciate recommendations per psychiatry. Dr. Wagoner, psychiatrist, recommends Haldol 2mg q6 prn agigation and confusion. He recommends using minimal amount of benzodiazepine. We will treat the RLL pna and continue to keep patient under close observation. (3) Pneumonia Current Visit: Yes Status: Acute Assessment and plan: Chest x-ray revealing opacities to the right lower lobe. Will cover for aspiration pneumonia due to drug overdose and risk of aspiration. Plan: Discontinue Levaquin Start Unasyn Qualifiers: Pneumonia type: due to unspecified organism Laterality: right Lung location: lower lobe of lung Qualified Code(s): J18.1 - Lobar pneumonia, unspecified organism (4) Abnormal urinalysis Current Visit: Yes Status: Acute Assessment and plan: Patient denies dysuria, no culture indicated (5) DVT prophylaxis Current Visit: Yes Status: Acute Assessment and plan: SQ Lovenox - Time Spent With Patient 25 - 35 minutes (30 minutes including time with patient coordination of care) - Subjective Interval history: Patient found sitting on bedside. She is deeply concerned about getting discharged. She states that she does not remember why she has a sitter. She does not remember the days preceding her hospitalization and states that she was using suboxone and xanax. She denies IVDA. She states that she goes to [place], [place] to a "wellness center" for suboxone prescriptions. - Constitutional Vitals: Temp Pulse Resp BP Pulse Ox 98.2 F 63 16 135/94 97 01/20/17 15:00 01/20/17 15:00 01/20/17 15:00 01/20/17 15:00 01/20/17 15:00 General appearance: Present: disheveled, morbidly obese, no acute distress, answers questions appropriately - Head Head exam: Present: atraumatic, normocephalic - Eye Eye exam: Present: PERRL, conjuntiva pink, sclera anicteric - Neck Neck exam general surgery: Present: supple, trachea midline. Absent: lymphadenopathy - Respiratory Respiratory exam: Present: CTAB. Absent: accessory muscle use, rales, rhonchi, wheezes - Cardiovascular Cardiovascular exam: Present: RRR, +S1, +S2. Absent: diastolic murmur, gallop, rubs, systolic murmur - GI/Abdominal GI/Abdominal exam: Present: normal bowel sounds, soft, no peritoneal signs. Absent: distended, tenderness - Extremities Exam Extremities exam: Present: warm, radial pulses palpable and symetrical. Absent : calf tenderness, cyanotic, pedal edema Additional comments: No oslers nodes, no janeway lesions - Neurological Exam Neurological exam: Present: CN II-XII intact, oriented X3, no focal deficits. Absent: pronater drift, facial droop, speech deficit - Psychiatric Additional comments: Alternating between moments of lucidity and staring off into space She forgets her train of thought and cannot recoup She is fixated on getting discharged - Skin Skin exam: Present: dry, intact Internal Medicine: Result - Labs CBC & Chem 7: 01/19/17 04:21 01/20/17 04:54 Labs: BMP 01/20/17 04:54 Sodium 142 Potassium 3.6 Chloride 110 H Carbon Dioxide 21 BUN 11 Creatinine 0.73 Glucose 96 Calcium 9.4 Urine 01/20/17 Range/Units 05:30 Urine Color Yellow (Yellow) Urine Clarity Cloudy A (Clear) Urine pH 6.5 (5.0-8.0) pH Units Ur Specific [place] 1.019 (1.010-1.025) Urine Protein Negative (Neg-Trace) mg/dL Urine Glucose (UA) Normal (Normal) mg/dL Consult Discharge Plan - Plan Instructions: Benzodiazepine Abuse (DC), Narcotic Abuse (DC) Additional Instructions: Follow-up with primary care provider in one to 2 weeks Follow-up appointments: If there is not an appointment listed below, please call your physician and schedule a follow-up appointment. If you have congestive heart failure and your symptoms return, make an appointment with your physician. Symptoms: If your condition changes or you experience any of the following symptoms, notify your physician immediately: Unusual or worsening pain, fever, persistent nausea and vomiting, bleeding, increase in swelling (especially in your legs), sudden weight gain, extreme dizziness, chest pain, increased drainage or redness from a wound or incision. Go to the emergency department if you experience a problem with breathing. Weights: If you have a history of swelling or shortness of breath, weigh yourself daily and notify your physician if you have a weight gain of two or more pounds in one day or 5 or more pounds in a week. If you experience any of the warning signs for stroke: Sudden numbness or weakness of the face, arm or leg; especially on one side of the body, sudden confusion, trouble speaking or understanding, sudden trouble seeing in one or both eyes, sudden trouble walking, dizziness, loss of balance or coordination, sudden sever headache with no cause; Call 911 or go to the emergency room. Stroke is a medical emergency. Some risk factors for stroke: Age, cigarette smoking, diabetes, excessive alcohol consumption, family history , high blood pressure, overweight, physical inactivity, prior stroke, heart attack, diagnosis of carotid artery stenosis or other artery disease. If you smoke, STOP: Smoking or tobacco use significantly increases your risk of heart and lung disease. Your chance of disease greatly increases if you continue to smoke. For more information, call the [place] tobacco quit line for smoking cessation QUIT-NOW ( ) Referrals: NO,PCP [Primary Care Provider] - (Please call the physician referral line at [phone]. Please call to schedule an appointment in 5-7 days. ) Prescriptions: Levofloxacin 750 mg PO DAILY #7 tablet - Attending Attestation I examined this patient and my medical decision-making was reviewed with the COLLECTION COORDINATOR/PA/Advanced Practice Nurse/Resident Physician. I agree with the documented findings, disposition and treatment plan as described except to the extent set forth below. <Binh Glover - Last Filed: 01/21/17 08:31> Date of Encounter: 01/21/17 - Constitutional Vitals: Temp Pulse Resp BP Pulse Ox 98.1 F 71 20 122/87 96 01/21/17 07:50 01/21/17 07:50 01/21/17 07:50 01/21/17 07:50 01/21/17 07:50 Internal Medicine: Result - Labs CBC & Chem 7: 01/21/17 04:27 01/21/17 04:27 Labs: Short CBC 01/21/17 Range/Units 04:27 WBC 6.2 (4.3-11.1) K/mcL Hgb 14.1 (11.5-15.4) g/dL Hct 40.3 (35.3-44.9) % Plt Count 262 (140-400) K/mcL Neutrophils # 3.6 (1.6-8.9) K/mcL BMP 01/21/17 04:27 Sodium 141 Potassium 3.1 L Chloride 111 H Carbon Dioxide 18 L BUN 12 Creatinine 0.75 Glucose 109 H Calcium 9.1 - Attending Attestation I examined this patient and my medical decision-making was reviewed with the COLLECTION COORDINATOR/PA/Advanced Practice Nurse/Resident Physician. I agree with the documented findings, disposition and treatment plan as described except to the extent set forth below. Seen and examined, agree with Dr. Worrell' note. Follow psych input.
[2017-01-20] MEDS: Ampicillin/Sulbactam 1,500 MG in 0.9 % Sodium Chloride Mini Bag 100 ML IVPB SCH ×2 (19:02→23:17)
[2017-01-20] MEDS: *HR* LORazepam 2 MG/ML VIAL IVP PRN (23:17)
[2017-01-21] MEDS ORDERED: Haloperidol Lactate 5 MG/ML VIAL IVP PRN (00:32)
[2017-01-21 05:16] LABS: Basophils % 0.2 %; Hematocrit 40.3 % (35.3-44.9); Hemoglobin 14.1 g/dL (11.5-15.4); Immature Granulocytes % 0.5 % (0-4); Immature Platelets 3.6 % (1.1-6.1); Lymphocytes # 2.1 K/mcL (0.6-4.6); Lymphocytes % 34.4 %; Mean Corpuscular Volume 85.7 fL (83.0-100.0); Mean Platelet Volume 9.9 fL (9.4-12.4); Monocytes # 0.5 K/mcL (0.0-1.3); Monocytes % 7.4 %; Neutrophils # 3.6 K/mcL (1.6-8.9); Platelet Count 262 K/mcL (140-400); Red Cell Distribution Width 11.9 % (11.5-14.5); Segmented Neutrophils % 57.5 %
[2017-01-21] MEDS: Ampicillin/Sulbactam 1,500 MG in 0.9 % Sodium Chloride Mini Bag 100 ML IVPB SCH ×2 (05:47→11:32)
[2017-01-21] MEDS: *HR* LORazepam 2 MG/ML VIAL IVP PRN (05:47)
[2017-01-21] MEDS: *HR* Enoxaparin 40 MG/0.4 ML SYRINGE SQ SCH (05:48)
[2017-01-21 06:38] LABS: BUN/Creatinine Ratio 16 (6-26); Blood Urea Nitrogen 12 mg/dL (7-20); Calcium 9.1 mg/dL (8.6-10.8); Carbon Dioxide 18 mEq/L (19-29); Chloride 111 mEq/L (98-109); Glucose 109 mg/dL (70-99); Osmolality,Calculated 292 (280-300); Potassium 3.1 mEq/L (3.5-4.5); Sodium 141 mEq/L (136-145); eGFR For African Americans > 60 (> 60); eGFR For Non-African Americans > 60 (> 60)
[2017-01-21 06:42] LABS: Platelet Estimate Normal (Normal); Reactive Lymphocytes Present (Not Present)
[2017-01-21 08:37] LABS: Magnesium 1.7 mg/dL (1.6-2.6)
--- NOTE | 2017-01-21 15:19 | Internal Med Progress Note ---
<Angelika Worrell - Last Filed: 01/21/17 16:32> Date of Encounter: 01/21/17 Time of Encounter: 14:45 - Assessment and plan (1) Benzodiazepine overdose Current Visit: Yes Status: Resolved Assessment and plan: Patient continues to exhibit symptoms of delirium. Suicidal ideation/homicidal ideation not present at this time. Plan: Withdrawal precautions Seizure precautions Consult psychiatry, we appreciate recommendations Consult psych social worker, we appreciate recommendations Qualifiers: Encounter type: initial encounter Injury intent: undetermined intent Qualified Code(s): T42.4X4A - Poisoning by benzodiazepines, undetermined, initial encounter (2) Acute metabolic encephalopathy Current Visit: Yes Status: Acute Assessment and plan: Head CT without acute process. Patient with waxing and waning levels of consciousness, hallucinations, and delusions. Appreciate recommendations per psychiatry. CXR performed 01/21/17 without evidence of acute process. Will discontinue Unasyn as patient does not appear to have pneumonia. Plan: Continue Haldol and ativan prn agigation and confusion (3) Abnormal urinalysis Current Visit: Yes Status: Acute Assessment and plan: Patient denies dysuria, no culture indicated (4) DVT prophylaxis Current Visit: Yes Status: Acute Assessment and plan: SQ Lovenox - Subjective Interval history: Patient found sitting on bedside. She denies chest pain, dyspnea, problems with bowels or bladder. During patient interview, patient turned volume on TV and began conversing into the remote. She was oriented only to person and time , but not to place. She continued interjecting bizarre comments, such as "are they going to be charged for that?" and "that's all I know about what happened. I was not in the vicinity". - Constitutional Vitals: Temp Pulse Resp BP Pulse Ox 97.9 F 64 18 161/99 100 01/21/17 11:49 01/21/17 11:49 01/21/17 11:49 01/21/17 11:49 01/21/17 11:49 General appearance: Present: disheveled, morbidly obese, no acute distress, answers questions appropriately - Head Head exam: Present: atraumatic, normocephalic - Eye Eye exam: Present: EOMI, conjuntiva pink, sclera anicteric Pupils: Present: mydriatic - Neck Neck exam general surgery: Present: supple, trachea midline - Respiratory Respiratory exam: Present: CTAB. Absent: accessory muscle use, rales, rhonchi, wheezes - Cardiovascular Cardiovascular exam: Present: RRR, +S1, +S2. Absent: diastolic murmur, gallop, rubs, systolic murmur - GI/Abdominal GI/Abdominal exam: Present: normal bowel sounds, soft, no peritoneal signs. Absent: distended, tenderness - Extremities Exam Extremities exam: Present: warm, radial pulses palpable and symetrical. Absent : cyanotic, pedal edema - Neurological Exam Neurological exam: Present: CN II-XII intact, oriented X3, no focal deficits. Absent: pronater drift, facial droop, speech deficit - Psychiatric Additional comments: Waxing and waning levels of consciousness. Patient distracted by stimuli not present in the room. Appears to converse with someone in the room at times. - Skin Skin exam: Present: dry, intact Internal Medicine: Result - Labs CBC & Chem 7: 01/21/17 04:27 01/21/17 04:27 - Impressions Impressions Chest X-Ray 01/21/17 13:23 IMPRESSION: No acute process. D/ / Navin Mccoy MD / Navin Mccoy MD Interpreting Provider: Navin Mccoy MD Consult Discharge Plan - Plan Instructions: Benzodiazepine Abuse (DC), Narcotic Abuse (DC) Additional Instructions: Follow-up with primary care provider in one to 2 weeks Follow-up appointments: If there is not an appointment listed below, please call your physician and schedule a follow-up appointment. If you have congestive heart failure and your symptoms return, make an appointment with your physician. Symptoms: If your condition changes or you experience any of the following symptoms, notify your physician immediately: Unusual or worsening pain, fever, persistent nausea and vomiting, bleeding, increase in swelling (especially in your legs), sudden weight gain, extreme dizziness, chest pain, increased drainage or redness from a wound or incision. Go to the emergency department if you experience a problem with breathing. Weights: If you have a history of swelling or shortness of breath, weigh yourself daily and notify your physician if you have a weight gain of two or more pounds in one day or 5 or more pounds in a week. If you experience any of the warning signs for stroke: Sudden numbness or weakness of the face, arm or leg; especially on one side of the body, sudden confusion, trouble speaking or understanding, sudden trouble seeing in one or both eyes, sudden trouble walking, dizziness, loss of balance or coordination, sudden sever headache with no cause; Call 911 or go to the emergency room. Stroke is a medical emergency. Some risk factors for stroke: Age, cigarette smoking, diabetes, excessive alcohol consumption, family history , high blood pressure, overweight, physical inactivity, prior stroke, heart attack, diagnosis of carotid artery stenosis or other artery disease. If you smoke, STOP: Smoking or tobacco use significantly increases your risk of heart and lung disease. Your chance of disease greatly increases if you continue to smoke. For more information, call the [place] tobacco quit line for smoking cessation 8-700 QUIT-NOW ( ) Referrals: NO,PCP [Primary Care Provider] - (Please call the physician referral line at [phone]. Please call to schedule an appointment in 5-7 days. ) - Attending Attestation I examined this patient and my medical decision-making was reviewed with the SPRING FLOOR SERVICE WORKER/PA/Advanced Practice Nurse/Resident Physician. I agree with the documented findings, disposition and treatment plan as described except to the extent set forth below. <Binh Glover - Last Filed: 01/21/17 18:09> Date of Encounter: 01/21/17 - Constitutional Vitals: Temp Pulse Resp BP Pulse Ox 97.8 F 66 14 149/102 98 01/21/17 16:23 01/21/17 16:23 01/21/17 16:23 01/21/17 16:23 01/21/17 16:23 Internal Medicine: Result - Labs CBC & Chem 7: 01/21/17 04:27 01/21/17 04:27 - Impressions Impressions Chest X-Ray 01/21/17 13:23 IMPRESSION: No acute process. D/ / Navin Mccoy MD / Navin Mccoy MD Interpreting Provider: Navin Mccoy MD - Attending Attestation I examined this patient and my medical decision-making was reviewed with the SPRING FLOOR SERVICE WORKER/PA/Advanced Practice Nurse/Resident Physician. I agree with the documented findings, disposition and treatment plan as described except to the extent set forth below. hypokalemia, will supplement, no evidence of pna, will d /c antibiotics. Follow psych input.
--- NOTE | 2017-01-21 19:04 | Event Note ---
Date of Encounter: 01/21/17 Time of Encounter: 18:40 Asked to evaluate patient for pink slip. She has already had one pink slip done. Evaluated by psychiatry and condition felt due to medical problem ( pneumonia). Today she was medically cleared and abx stopped. Pt remains agitated and confused. She is hallucinating. I feel she remains a harm to herself and should not be able to leave our facility. Her family has been here and has been in agreement with this plan. Stacy slip completed.
[2017-01-21] MEDS ORDERED: Acetaminophen 325 MG TABLET PO PRN (19:25)
[2017-01-21] MEDS ORDERED: *HR* LORazepam 2 MG/ML VIAL IM PRN (21:48)
[2017-01-21] MEDS ORDERED: Ondansetron 4 MG/2 ML VIAL IM PRN (21:50)
[2017-01-21] MEDS ORDERED: Haloperidol Lactate 5 MG/ML VIAL IM PRN (21:55)
[2017-01-22] MEDS ORDERED: Haloperidol Lactate 5 MG/ML VIAL IM SCH
[2017-01-22 05:14] LABS: Basophils % 0.4 %; Eosinophils % 0.4 %; Hematocrit 42.7 % (35.3-44.9); Hemoglobin 14.9 g/dL (11.5-15.4); Immature Granulocytes % 0.5 % (0-4); Lymphocytes # 2.2 K/mcL (0.6-4.6); Lymphocytes % 39.7 %; Mean Corpuscular HGB Conc 34.9 g/dL (31.6-35.5); Mean Corpuscular Hemoglobin 30.1 pg (28.0-33.3); Mean Corpuscular Volume 86.3 fL (83.0-100.0); Mean Platelet Volume 9.7 fL (9.4-12.4); Monocytes # 0.5 K/mcL (0.0-1.3); Monocytes % 8.2 %; Neutrophils # 2.9 K/mcL (1.6-8.9); Platelet Count 278 K/mcL (140-400); Red Blood Count 4.95 M/mcL (3.82-4.97); Red Cell Distribution Width 11.9 % (11.5-14.5); Segmented Neutrophils % 50.8 %
[2017-01-22 05:33] LABS: Alanine Aminotransferase 7 Units/L (0-55); Albumin 3.6 g/dL (3.5-5.0); Albumin/Globulin Ratio 1.3 (1.1-2.2); Alkaline Phosphatase 38 Units/L (38-126); Aspartate Amino Transferase 12 Units/L (5-34); BUN/Creatinine Ratio 16 (6-26); Bilirubin,Total 0.9 mg/dL (0.2-1.2); Blood Urea Nitrogen 12 mg/dL (7-20); Calcium 9.3 mg/dL (8.6-10.8); Carbon Dioxide 22 mEq/L (19-29); Chloride 110 mEq/L (98-109); Globulin 2.8 g/dL (2.4-3.5); Glucose 90 mg/dL (70-99); Osmolality,Calculated 291 (280-300); Potassium 3.7 mEq/L (3.5-4.5); Sodium 141 mEq/L (136-145); Total Protein 6.4 g/dL (6.0-8.3); eGFR For African Americans > 60 (> 60); eGFR For Non-African Americans > 60 (> 60)
[2017-01-22] MEDS: *HR* Enoxaparin 40 MG/0.4 ML SYRINGE SQ SCH (06:02)
[2017-01-22] MEDS ORDERED: Nicotine 14 MG PATCH.TD24 TD SCH (12:15)
--- NOTE | 2017-01-22 14:56 | Internal Med Progress Note ---
<Angelika Worrell - Last Filed: 01/22/17 14:46> Date of Encounter: 01/22/17 Time of Encounter: 10:05 - Assessment and plan (1) Benzodiazepine overdose Current Visit: Yes Status: Resolved Assessment and plan: Patient appears to be lucid at this time. However, due to need for sedation with Haldol within the last 12 hours, we would like to continue to monitor patient for signs of withdrawal. 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 We expect discharge tomorrow, should patient remain stable and free of delirium-type symptoms. Plan: Continue withdrawal precautions Continue seizure precautions Consult psychiatry, we appreciate recommendations Consult clinical social work aide, we appreciate recommendations Qualifiers: Encounter type: initial encounter Injury intent: undetermined intent Qualified Code(s): T42.4X4A - Poisoning by benzodiazepines, undetermined, initial encounter (2) Acute metabolic encephalopathy Current Visit: Yes Status: Acute Assessment and plan: Head CT without acute process. Plan: Continue Haldol and ativan prn agigation and confusion (3) Abnormal urinalysis Current Visit: Yes Status: Acute Assessment and plan: Patient denies dysuria, no culture indicated (4) DVT prophylaxis Current Visit: Yes Status: Acute Assessment and plan: SQ Lovenox - Time Spent With Patient Greater than 35 minutes (40 minutes including time with patient and coordinating care) - Subjective Interval history: Patient found sitting in bed. She denies headache, dizziness, chest pain, dyspnea, dysuria, diarrhea, constipation, muscle aches. She is lucid and awake. She states that she remembers hallucinations that she has had the past couple of days as if they were dreams. She admits to taking 15 "purple footballs" that were 1mg Xanax. She states that she took some of these orally and snorted some within a short period of time. She also admits to snorting heroin at that time. She admits that she took two strips of suboxone on the same day, which is what she takes each day as prescribed by a suboxone clinic in [place], [place]. She states that she regularly snorts about $20 worth of heroin, not to get high but to prevent withdrawal. She states that when she has taken Xanax in the past, it has affected her negatively. She is interested in talking about rehab options with the high school social studies teacher. - Constitutional Vitals: Temp Pulse Resp BP Pulse Ox 98.1 F 78 16 144/87 96 01/22/17 10:45 01/22/17 10:45 01/22/17 10:45 01/22/17 10:45 01/22/17 10:45 General appearance: Present: disheveled, A&O X 3, morbidly obese, no acute distress, answers questions appropriately - Head Head exam: Present: atraumatic, normocephalic - Eye Eye exam: Present: EOMI, PERRL, conjuntiva pink, sclera anicteric - Neck Neck exam general surgery: Present: supple, trachea midline - Respiratory Respiratory exam: Present: CTAB. Absent: accessory muscle use, rales, rhonchi, wheezes - Cardiovascular Cardiovascular exam: Present: RRR, +S1, +S2. Absent: diastolic murmur, gallop, rubs, systolic murmur - GI/Abdominal GI/Abdominal exam: Present: normal bowel sounds, soft, no peritoneal signs. Absent: distended, tenderness - Extremities Exam Extremities exam: Present: warm, radial pulses palpable and symetrical. Absent : cyanotic, pedal edema - Neurological Exam Neurological exam: Present: CN II-XII intact, oriented X3, no focal deficits. Absent: pronater drift, facial droop, speech deficit - Skin Skin exam: Present: dry, intact Internal Medicine: Result - Labs CBC & Chem 7: 01/22/17 04:43 01/22/17 04:43 Labs: Short CBC 01/22/17 Range/Units 04:43 WBC 5.6 (4.3-11.1) K/mcL Hgb 14.9 (11.5-15.4) g/dL Hct 42.7 (35.3-44.9) % Plt Count 278 (140-400) K/mcL Neutrophils # 2.9 (1.6-8.9) K/mcL BMP 01/22/17 04:43 Sodium 141 Potassium 3.7 Chloride 110 H Carbon Dioxide 22 BUN 12 Creatinine 0.77 Glucose 90 Calcium 9.3 Liver Function 01/22/17 Range/Units 04:43 Total Bilirubin 0.9 (0.2-1.2) mg/dL AST 12 (5-34) Units/L ALT 7 (0-55) Units/L Alkaline Phosphatase 38 (38-126) Units/L Albumin 3.6 (3.5-5.0) g/dL - Impressions Head CT 01/17/17 23:34 IMPRESSION: No acute intracranial abnormality. D/ / Oscar Crowell MD / Oscar Crowell MD Interpreting Provider: Oscar Crowell MD Chest X-Ray 01/21/17 13:23 IMPRESSION: No acute process. D/ / Navin Mccoy MD / Navin Mccoy MD Interpreting Provider: Navin Mccoy MD Consult Discharge Plan - Plan Instructions: Benzodiazepine Abuse (DC), Narcotic Abuse (DC) Additional Instructions: Follow-up with primary care provider in one to 2 weeks Follow-up appointments: If there is not an appointment listed below, please call your physician and schedule a follow-up appointment. If you have congestive heart failure and your symptoms return, make an appointment with your physician. Symptoms: If your condition changes or you experience any of the following symptoms, notify your physician immediately: Unusual or worsening pain, fever, persistent nausea and vomiting, bleeding, increase in swelling (especially in your legs), sudden weight gain, extreme dizziness, chest pain, increased drainage or redness from a wound or incision. Go to the emergency department if you experience a problem with breathing. Weights: If you have a history of swelling or shortness of breath, weigh yourself daily and notify your physician if you have a weight gain of two or more pounds in one day or 5 or more pounds in a week. If you experience any of the warning signs for stroke: Sudden numbness or weakness of the face, arm or leg; especially on one side of the body, sudden confusion, trouble speaking or understanding, sudden trouble seeing in one or both eyes, sudden trouble walking, dizziness, loss of balance or coordination, sudden sever headache with no cause; Call 911 or go to the emergency room. Stroke is a medical emergency. Some risk factors for stroke: Age, cigarette smoking, diabetes, excessive alcohol consumption, family history , high blood pressure, overweight, physical inactivity, prior stroke, heart attack, diagnosis of carotid artery stenosis or other artery disease. If you smoke, STOP: Smoking or tobacco use significantly increases your risk of heart and lung disease. Your chance of disease greatly increases if you continue to smoke. For more information, call the [place] tobacco quit line for smoking cessation -NOW ( ) Referrals: NO,PCP [Primary Care Provider] - (Please call the physician referral line at [phone]. Please call to schedule an appointment in 5-7 days. ) - Attending Attestation I examined this patient and my medical decision-making was reviewed with the CONTRIBUTION SOLICITOR/PA/Advanced Practice Nurse/Resident Physician. I agree with the documented findings, disposition and treatment plan as described except to the extent set forth below. <Binh Glover - Last Filed: 01/22/17 15:47> Date of Encounter: 01/22/17 - Constitutional Vitals: Temp Pulse Resp BP Pulse Ox 98.5 F 84 16 121/77 96 01/22/17 14:00 01/22/17 14:00 01/22/17 14:00 01/22/17 14:00 01/22/17 14:00 Internal Medicine: Result - Labs CBC & Chem 7: 01/22/17 04:43 01/22/17 04:43 Labs: Short CBC 01/22/17 Range/Units 04:43 WBC 5.6 (4.3-11.1) K/mcL Hgb 14.9 (11.5-15.4) g/dL Hct 42.7 (35.3-44.9) % Plt Count 278 (140-400) K/mcL Neutrophils # 2.9 (1.6-8.9) K/mcL BMP 01/22/17 04:43 Sodium 141 Potassium 3.7 Chloride 110 H Carbon Dioxide 22 BUN 12 Creatinine 0.77 Glucose 90 Calcium 9.3 Liver Function 01/22/17 Range/Units 04:43 Total Bilirubin 0.9 (0.2-1.2) mg/dL AST 12 (5-34) Units/L ALT 7 (0-55) Units/L Alkaline Phosphatase 38 (38-126) Units/L Albumin 3.6 (3.5-5.0) g/dL - Attending Attestation I examined this patient and my medical decision-making was reviewed with the CONTRIBUTION SOLICITOR/PA/Advanced Practice Nurse/Resident Physician. I agree with the documented findings, disposition and treatment plan as described except to the extent set forth below. Continue with haldol prn. No pneumonia. Hypokalemia corrected. director of career services involved. Psych input noted.
[2017-01-23 05:21] LABS: Basophils % 0.3 %; Eosinophils % 0.3 %; Hematocrit 44.2 % (35.3-44.9); Hemoglobin 15.5 g/dL (11.5-15.4); Immature Granulocytes % 0.3 % (0-4); Lymphocytes # 2.2 K/mcL (0.6-4.6); Lymphocytes % 37.9 %; Mean Corpuscular HGB Conc 35.1 g/dL (31.6-35.5); Mean Corpuscular Hemoglobin 29.8 pg (28.0-33.3); Mean Platelet Volume 9.7 fL (9.4-12.4); Monocytes # 0.4 K/mcL (0.0-1.3); Monocytes % 6.7 %; Neutrophils # 3.2 K/mcL (1.6-8.9); Platelet Count 321 K/mcL (140-400); Red Cell Distribution Width 11.9 % (11.5-14.5); Segmented Neutrophils % 54.5 %
[2017-01-23 05:34] LABS: Alanine Aminotransferase 10 Units/L (0-55); Albumin 3.9 g/dL (3.5-5.0); Albumin/Globulin Ratio 1.3 (1.1-2.2); Alkaline Phosphatase 41 Units/L (38-126); Aspartate Amino Transferase 10 Units/L (5-34); BUN/Creatinine Ratio 14 (6-26); Bilirubin,Total 0.8 mg/dL (0.2-1.2); Blood Urea Nitrogen 11 mg/dL (7-20); Calcium 9.4 mg/dL (8.6-10.8); Carbon Dioxide 21 mEq/L (19-29); Chloride 107 mEq/L (98-109); Globulin 2.9 g/dL (2.4-3.5); Glucose 92 mg/dL (70-99); Osmolality,Calculated 285 (280-300); Potassium 3.6 mEq/L (3.5-4.5); Sodium 138 mEq/L (136-145); Total Protein 6.8 g/dL (6.0-8.3); eGFR For African Americans > 60 (> 60); eGFR For Non-African Americans > 60 (> 60)
[2017-01-23] MEDS: *HR* Enoxaparin 40 MG/0.4 ML SYRINGE SQ SCH (06:12)
[2017-01-23 07:38] VITALS: BP 122/84
--- NOTE | 2017-01-23 07:39 | Discharge Summary ---
<Angelika Worrell Srinivasa - Last Filed: 01/23/17 07:53> Date of Encounter: 01/23/17 Time of Encounter: 06:55 - Discharge Diagnosis (1) Benzodiazepine overdose Priority: Primary Status: Resolved Qualifiers: Encounter type: initial encounter Injury intent: undetermined intent Qualified Code(s): T42.4X4A - Poisoning by benzodiazepines, undetermined, initial encounter (2) Acute metabolic encephalopathy Priority: Primary Status: Resolved (3) Abnormal urinalysis Priority: Secondary Status: Resolved (4) DVT prophylaxis Priority: Secondary Status: Resolved - Discharge Medications Home Medications: Levofloxacin 750 mg PO DAILY #7 tablet 01/18/17 [Rx] Allergies/Adverse Reactions: Allergies No Known Allergies Allergy (Verified 03/24/16 19:19) Date of admission: 01/21/17 12:52 Primary care physician: FRANCESCO CAMEJO Discharging clinician: Binh Glover Anticipated date of discharge: 01/23/17 - Patient Status Disposition: Home, Self-Care Condition: Good Functional capacity at discharge: independent ambulation Overall status at discharge: patient is progressing back to baseline - Discharge Instructions Instructions: Benzodiazepine Abuse (DC), Narcotic Abuse (DC) Follow Up With: NO,PCP [Primary Care Provider] - (Please call the physician referral line at [phone]. Please call to schedule an appointment in 5-7 days. ) Additional Instructions: Follow-up with primary care provider in one to 2 weeks Follow-up appointments: If there is not an appointment listed below, please call your physician and schedule a follow-up appointment. If you have congestive heart failure and your symptoms return, make an appointment with your physician. Symptoms: If your condition changes or you experience any of the following symptoms, notify your physician immediately: Unusual or worsening pain, fever, persistent nausea and vomiting, bleeding, increase in swelling (especially in your legs), sudden weight gain, extreme dizziness, chest pain, increased drainage or redness from a wound or incision. Go to the emergency department if you experience a problem with breathing. Weights: If you have a history of swelling or shortness of breath, weigh yourself daily and notify your physician if you have a weight gain of two or more pounds in one day or 5 or more pounds in a week. If you experience any of the warning signs for stroke: Sudden numbness or weakness of the face, arm or leg; especially on one side of the body, sudden confusion, trouble speaking or understanding, sudden trouble seeing in one or both eyes, sudden trouble walking, dizziness, loss of balance or coordination, sudden sever headache with no cause; Call 911 or go to the emergency room. Stroke is a medical emergency. Some risk factors for stroke: Age, cigarette smoking, diabetes, excessive alcohol consumption, family history , high blood pressure, overweight, physical inactivity, prior stroke, heart attack, diagnosis of carotid artery stenosis or other artery disease. If you smoke, STOP: Smoking or tobacco use significantly increases your risk of heart and lung disease. Your chance of disease greatly increases if you continue to smoke. For more information, call the [place] tobacco quit line for smoking cessation 5032 QUIT-NOW ( ) - Diet and Activity Activity: increase activity as tolerated Diet: advance to your usual diet Hospital course: Ms. Frazier is a 26 year old female who presented to the hospital 01/17/17 with benzodiazepine overdose. She states that she bought 15 Xanax 1mg "purple footballBrozengo". Within a few minutes, she took all 15 either by mouth or by snorting. She also admits to snorting heroin at that time as well as taking 2 strips of suboxone on the same day. She has a history of drug use x 4 years. Patient was admitted for close observation, withdrawal precautions, and seizure precautions. CXR 01/18/17 revealed possible RLL pneumonia vs. RLL atelectasis. She was treated with Unasyn x 4 doses. Patient was afebrile without systemic symptoms of infection Repeat CXR revealed no acute process. Abx were discontinued. Throughout hospital visit, patient had intermittent periods of somnolence and periods of hallucination/delusion. She was treated with Haldol and Ativan prn. On 01/22/17, patient's delirium ceased. The level of concentration remained stable, conversation was goal-oriented, and thoughts were logical. Patient discussed follow up treatment options with SW. Patient made appointments for next Wednesday and Wednesday to visit rehabilitation homes. Patient is stable for discharge at this time with instructions to follow up with rehabilitation center. She is capable of appropriate decision-making. She denies suicidal ideation. Denies homicidal ideation. - Time Spent with Patient Total time spent providing and/or coordinating discharge services: Greater than 30 minutes (35 minutes including time with patient and time coordinating discharge) - Constitutional Vitals: Temp Pulse Resp BP Pulse Ox 98.4 F 98 20 107/77 94 L 01/23/17 02:45 01/23/17 02:45 01/23/17 02:45 01/23/17 02:45 01/23/17 02:45 General appearance: Present: disheveled, A&O X 3, morbidly obese, no acute distress, answers questions appropriately - Head Head exam: Present: atraumatic, normocephalic - Eye Eye exam: Present: PERRL, conjuntiva pink, sclera anicteric - Neck Neck exam general surgery: Present: supple, trachea midline - Respiratory Respiratory exam: Present: CTAB. Absent: accessory muscle use, rales, rhonchi, wheezes - Cardiovascular Cardiovascular exam: Present: RRR, +S1, +S2. Absent: diastolic murmur, gallop, rubs, systolic murmur - GI/Abdominal GI/Abdominal exam: Present: normal bowel sounds, soft, no peritoneal signs. Absent: distended, tenderness - Extremities Exam Extremities exam: Present: warm, radial pulses palpable and symetrical. Absent : calf tenderness, cyanotic, pedal edema - Neurological Exam Neurological exam: Present: CN II-XII intact, oriented X3, no focal deficits. Absent: pronater drift, facial droop, speech deficit - Psychiatric Psychiatric exam: Present: normal affect, normal mood Additional comments: Goal-directed thoughts. Capable of holding attention during conversation. No hallucinations or delusions. Patient states that she took the Xanax or recreation. She denies taking Xanax to harm herself or commit suicide. She states that she has never tried to commit suicide in the past. She denies suicidal ideation. She denies homicidal ideation. - Skin Skin exam: Present: dry, intact - Other Additional findings: Head CT 01/17/17 23:34 IMPRESSION: No acute intracranial abnormality. D/ / Oscar Crowell MD / Oscar Crowell MD Interpreting Provider: Oscar Crowell MD Chest X-Ray 01/21/17 13:23 IMPRESSION: No acute process. D/ / Navin Mccoy MD / Navin Mccoy MD Interpreting Provider: Navin Mccoy MD - Attending Attestation I examined this patient and my medical decision-making was reviewed with the BILLPOSTER/PA/Advanced Practice Nurse/Resident Physician. I agree with the documented findings, disposition and treatment plan as described except to the extent set forth below. <AdalbertoBinh R - Last Filed: 01/23/17 12:40> Date of Encounter: 01/23/17 Date of admission: 01/21/17 12:52 Primary care physician: PCP NO Hospital course: Ms. Frazier is a 26 year old female - Time Spent with Patient Total time spent providing and/or coordinating discharge services: - Constitutional Vitals: Temp Pulse Resp BP Pulse Ox 99.2 F 78 14 122/84 96 01/23/17 07:30 01/23/17 07:30 01/23/17 07:30 01/23/17 07:30 01/23/17 07:30 - Attending Attestation I examined this patient and my medical decision-making was reviewed with the BILLPOSTER/PA/Advanced Practice Nurse/Resident Physician. I agree with the documented findings, disposition and treatment plan as described except to the extent set forth below. Stable, no fever, no leukocytossis, no pneumomia. No signs of delirium today. Follow up apps arranged for early next week. Discharge home today, will go to her mother's house.
== END 2017-01-23 09:15 | disposition home or self-care (01) | DRG 812 ==
LOC: EMEROO 23:04 → 3BNU 23:04 → SUATTDRO 01-18 04:26 → 3BNU 01-18 05:01 → 3ANU 01-19 23:50
PROVIDERS: ADMIT Internal Medicine; ATTEND Internal Medicine

== ENCOUNTER 2018-07-01 15:16 | Inpatient (IN) ==
[2018-07-01] MEDS ORDERED: *HR* Oxytocin 10 UNIT/ML VIAL IM ONE (15:22)
--- NOTE | 2018-07-01 15:37 | Emergency Department Note ---
Disposition Clinical Impression: Precipitous delivery Heroin overdose Qualifiers: Encounter type: initial encounter Injury intent: accidental or unintentional Qualified Code(s): T40.1X1A - Poisoning by heroin, accidental (unintentional), initial encounter Disposition: Admitted As Inpatient Condition: Fair Time of Disposition: 15:39 HPI - General Chief complaint: ED OB/Uterine Contractions Stated complaint: Delivery in Field Time Seen by Provider: 07/01/18 15:25 Source: patient, EMS Mode of arrival: EMS Limitations: no limitations Nursing Notes Reviewed: Yes Vital Signs Reviewed: Yes - History of Present Illness HPI Narrative: Concern about status. Patient arrives by EMS. She was found unresponsive on the toilet. She had delivered an precipitously. She was found somnolent and was provided IV Narcan 2 mg with improvement in symptoms. He has no complaints. Upon arrival she does admit to using opiates but denies other polysubstance abuse. 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 () LMP comments: - Social History Smoking Status: Current every day smoker Alcohol use: Reports: none Drug use: Reports: opiates, other Physical Exam - General Limitations: no limitations, other (Somnolent) General appearance: alert - Head Head exam: atraumatic - Eye Eye exam: Present: normal appearance - ENT ENT exam: normal exam - Neck Neck exam: Present: normal inspection, full ROM - Chest Chest inspection: Present: normal inspection, symmetric chest wall rise - Respiratory Respiratory exam: Present: normal lung sounds bilaterally - Cardiovascular Cardiovascular exam: Present: regular rate, normal rhythm, normal heart sounds - Abdominal Exam Abdominal exam: Present: soft, tenderness (Tender at uterine fundus), distention - Female Auto Locator present during exam: Yes External Exam: Present: bleeding, other (Umbilical cord protruding) - Extremities Exam Extremities exam: Present: normal inspection - Neurological Exam Neurological exam: Present: alert, oriented X3 - Psychiatric Psychiatric exam: Present: flat affect - Skin Skin exam: Present: pallor Course Course Narrative: Patient arrives by EMS after a precipitous delivery. She admits to snorting heroin. She is somnolent upon arrival and was given a total of 4 mg of additional Narcan in 2 separate doses. She was alert enough to answer basic questions. Pulse ox appropriate. She is protecting her airway. The business director Dr. Nelson was present and recommended intramuscular Pitocin. He delivered the placenta manually. No hemorrhage identified at this point. The patient will be admitted. Admitting service requested consultation with the medicine team to manage the overdose. - Reevaluation(s) Reevaluation #1: Dr. Hernandez requests Hep B and C studies, blood and Rh type and HIV screen. studies ordered at her request. Patient will have to consent for the HIV study Vital Signs Temperature 96.2 F L 07/01/18 15:18 Pulse Rate 84 07/01/18 15:18 Respiratory Rate 16 07/01/18 15:18 Blood Pressure 93/51 07/01/18 15:18 O2 Sat by Pulse Oximetry 100 07/01/18 15:18 Temperature 96.2 F L 07/01/18 15:18 Pulse Rate 85 07/01/18 15:37 Respiratory Rate 22 07/01/18 15:37 Blood Pressure 121/83 07/01/18 15:37 O2 Sat by Pulse Oximetry 100 07/01/18 15:37 Oxygen Delivery Oxygen Delivery Nasal Cannula OB/Uterine Contractions - Lab Data Lab results reviewed: Yes I reviewed the patient's lab results. Result diagrams: 07/01/18 15:41 Lab Results 07/01/18 Range/Units 15:41 WBC 19.7 H (4.3-11.1) K/mcL RBC 3.61 L (3.82-4.97) M/mcL Hgb 11.5 (11.5-15.4) g/dL Hct 32.8 L (35.3-44.9) % MCV 90.9 (83.0-100.0) fL MCH 31.9 (28.0-33.3) pg MCHC 35.1 (31.6-35.5) g/dL RDW 13.2 (11.5-14.5) % Plt Count 196 (140-400) K/mcL MPV 10.8 (9.4-12.4) fL Immature Gran % 0.7 (0-4) % Seg Neutrophils % 86.4 % Lymphocytes % 9.2 % Monocytes % 3.0 % Eosinophils % 0.5 % Basophils % 0.2 % Neutrophils # 17.1 H (1.6-8.9) K/mcL Lymphocytes # 1.8 (0.6-4.6) K/mcL Monocytes # 0.6 (0.0-1.3) K/mcL Eosinophils # 0.1 (0.0-0.6) K/mcL Basophils # 0.0 (0.0-0.2) K/mcL - EKG Data EKG attestation: Yes I reviewed and interpreted this EKG. EKG results narrative: Normal sinus rhythm with short KS interval rate 78 P-R 119 QRS 82 QT/QTC 372/ 405. Critical Care Time Critical Care Time: Yes Total Critical Care Time: 30 Attestation: The high probability of a clinically significant, sudden or life threatening deterioration of the [] system(s) required my full and direct attention, intervention and personal management. The aggregate critical care time was [] minutes. This time is in addition to time spent performing reported procedures but includes the following: [] Data Review and interpretation [] Patient assessment and monitoring of vital signs [] Documentation [] Medication orders and management
[2018-07-01] MEDS ORDERED: *HR* LORazepam 2 MG/ML VIAL IVP ONE (16:19)
[2018-07-01 16:30] LABS: Basophils % 0.2 %; Eosinophils # 0.1 K/mcL (0.0-0.6); Eosinophils % 0.5 %; Hematocrit 32.8 % (35.3-44.9); Hemoglobin 11.5 g/dL (11.5-15.4); Immature Granulocytes % 0.7 % (0-4); Lymphocytes # 1.8 K/mcL (0.6-4.6); Lymphocytes % 9.2 %; Mean Corpuscular HGB Conc 35.1 g/dL (31.6-35.5); Mean Corpuscular Hemoglobin 31.9 pg (28.0-33.3); Mean Corpuscular Volume 90.9 fL (83.0-100.0); Mean Platelet Volume 10.8 fL (9.4-12.4); Monocytes # 0.6 K/mcL (0.0-1.3); Neutrophils # 17.1 K/mcL (1.6-8.9); Platelet Count 196 K/mcL (140-400); Red Blood Count 3.61 M/mcL (3.82-4.97); Red Cell Distribution Width 13.2 % (11.5-14.5); Segmented Neutrophils % 86.4 %
--- NOTE | 2018-07-01 16:36 | NB SCN CHistory & Physical Rpt ---
Date of Encounter: 07/01/18 Time of Encounter: 16:30 -[facility] H&P HPI: Called to ER after precipitous home delivery of . Bystander called EMS due to adult that apparently overdosed and EMS discovered mother on toilet claiming that she had had a miscarriage. Infant found in toilet by EMS and noted to have poor color and tone and without respiratory effort. was dried and stimulated. They felt weak apical heart rate per EMS and did chest compressions. Apparently blow by, no report of PPV. At time of arrival to ER, was hypothermic with temperature of 92.3-92.5 despite radiant warmer. Receiving blow by oxygen, sats > 92% with good effort. Acrocyanosis noted. Tone was initially good, but with time noted tone worsening and still hypothermic so brought to NICU for further care. Mom arrived separately to ER, admitted to use of heroin to ED providers and was given Narcan. Reported that she had received care in [place], unknown records and labs at time of admission to NICU. Medications and Allergies Unable To Obtain [Unable to Obtain] 07/01/18 [History] 3 Allergy/AdvReac Type Severity Reaction Status Date / Time No Known Allergies Allergy Verified 12/30/17 16:39
[2018-07-01] MEDS ORDERED: Oxytocin 20 units/ LR 1000 mL 20 UNIT/1,000 ML BAG IVC ONE ×3 (16:44→19:52)
--- NOTE | 2018-07-01 17:00 | Internal Medicine Consult Note ---
<AlfonsoCory prather - Last Filed: 07/01/18 17:31> Date of Encounter: 07/01/18 Time of Encounter: 15:45 - Assessment and plan (1) Drug overdose Current Visit: Yes Status: Acute Assessment and plan: Accidental or unintentional drug overdose of unknown source or substance. Pt. is altered/somnolent on exam and only states snorting heroin. First stated three days ago, then reports today. Unclear if this is the only substance used. Urine tox screen ordered stat. NPO. Seizure precautions. Aspiration precautions. Supplemental O2 with titration and SPO2 monitoring. Vitals signs assessment for drug overdose protocol. Continuous pulse oximetry. Cardiac monitoring. 1 mg IVP Ativan given once in ED due to agitation. Pt. discussed w/ Dr. Her who agrees w/plan of care. Pt. is high risk for further morbidity and complications d/t current drug overdose of unknown substance or quantity, precipitous , hypothermia, AMS, increased risk for withdrawal requiring close monitoring, history of drug abuse and risk factors. Observation. Qualifiers: Encounter type: sequela Injury intent: accidental or unintentional Qualified Code(s): T50.901S - Poisoning by unspecified drugs, medicaments and biological substances, accidental (unintentional), sequela (2) Precipitous delivery Current Visit: Yes Status: Acute Assessment and plan: Acute and precipitous delivery of in [facility] bathroom. According to EMS, pt. was found unresponsive on the toilet and had delivered the precipitously. Pt. received Narcan 2 mg. According to ED, pt. received Narcan 2 mg x2 in ED for total of 6 mg. On exam, pt. is somnolent and hard to arouse. resuscitated by EMS and taken to [facility] ED. H/H Q6HR. Patient currently in ED where placenta was delivered manually by SOFTWARE CLERK. Patient (mother) to be followed by SOFTWARE CLERK with hospitalist consult. (3) Leukocytosis Current Visit: Yes Status: Acute Assessment and plan: Acute leukocytosis of 19.7 on admission to ED. Unknown recent hx of illness, fever, chills, N, V d/t pts. AMS. U/A ordered. Portable CXR ordered. Blood cultures 2 ordered. Pt. currently hypothermic on admission. 0.9 NS IV fluids at 100 mL/HR. Pt. and f/u labs to be monitored closely for signs of increasing infection and/or sepsis. Qualifiers: Leukocytosis type: unspecified Qualified Code(s): D72.829 - Elevated white blood cell count, unspecified (4) Hypokalemia Current Visit: Yes Status: Acute Assessment and plan: Acute hypokalemia of 3.4 on admission. Monitor f/u labs. (5) DVT prophylaxis Current Visit: Yes Status: Acute Assessment and plan: Bilateral SCDs on patient's LEs for DVT prophylaxis due to current blood loss from childbirth. (6) Hypothermia Current Visit: Yes Status: Acute Assessment and plan: Acute hypothermia w/temp of 96.2 rectally on admission. Radiant warming now and continuous core body temperature monitoring. VS per protocol ordered. Qualifiers: Encounter type: initial encounter Qualified Code(s): T68.XXXA - Hypothermia , initial encounter - Time Spent With Patient Total time spent is greater than 50% in coordination of care (as documented) at patient's floor/unit and/or counseling patient: 25 - 35 minutes Internal Medicine - CN: HPI - Data of Consult Patient: new to practice Requesting Physician: Kp Her - Consult Narrative History of present illness: Ms. Frazier is a 28 year old female whose PMH is unavailable currently d/t pts. somnolent status. Pt. 36 weeks gestation w/reported care in [place] delivered her baby at [facility] in [place] in the rest room. According to EMS, pt. was found unresponsive on the toilet and had delivered the infant precipitously. Pt. received Narcan 2 mg. According to ED, pt. received Narcan 2 mg x2 in ED for total of 6 mg. On exam, pt. is somnolent and hard to arouse. Pt. opens eyes to sternal rub but responses are inaudible for the most part. When asked what drug she used, pt. stated heroin three days. When asked again, pt. stated today. Pt. was seen following delivery of the placenta in ED. Scant vaginal bleeding present on exam. VS: Temperature 96.2 F rectally, heart rate 84, respiration rate 16, BP 93/51, SPO2 100% on 2 L via nasal cannula. BP improved 121/83 and 144/97 subsequently. Concern for hypothermia. Radiant warming ordered with continuous core body temperature monitoring. No other information from pt. available during exam d/t AMS. Past Med Surg Social Fam HX - Past Medical History Source: unable to obtain Medical history: no medical history Psychiatric history: no psych history - Past Surgical History Surgical History: no surgical history - Social History Smoking Status: Current every day smoker Smokeless Tobacco Status: No Alcohol use: none Drug use: opiates, other ROS unobtainable: due to mental status Internal Medicine - CN: Meds Unable To Obtain [Unable to Obtain] 07/01/18 [History] 3 Allergy/AdvReac Type Severity Reaction Status Date / Time No Known Allergies Allergy Verified 12/30/17 16:39 Internal Medicine - CN: Exam - Constitutional Vitals: Temp Pulse Resp BP Pulse Ox 96.2 F L 85 20 144/97 100 07/01/18 15:18 07/01/18 15:37 07/01/18 16:41 07/01/18 16:41 07/01/18 15:37 General appearance IM: Present: A&O X 0 - Head Head exam: Present: atraumatic, normal inspection - Eye Eye exam: Present: conjuntiva pink - ENT ENT exam: Present: mucous membranes moist - Neck Neck exam general surgery: Present: supple, trachea midline - Respiratory Respiratory exam: Present: CTAB Additional comments: Pt. protecting airway on exam. Breathing unlabored and regular. - Cardiovascular Cardiovascular exam IM: Present: +S1, +S2, tachycardia - GI/Abdominal GI/Abdominal exam IM: Present: firm (Uterus and abdomen firm on exam) - Rectal Rectal exam: Present: deferred - Specululm exam: Present: vaginal bleeding (Scant vaginal bleeding on exam) - Expanded Exam Female exam: Present: vulvar erythema - Extremities Exam Extremities exam IM: Present: warm, radial pulses palpable and symmetrical - Neurological Exam Neurological exam: Present: altered - Expanded Neurological Exam Neurological exam expanded: Present: inattentive, protecting the airway - Psychiatric Psychiatric exam: Present: anxious - Skin Skin exam IM: Present: dry, intact Internal Medicine - CN: Reslt - Labs CBC & Chem 7: 07/01/18 15:41 07/01/18 15:41 Consult Discharge Plan - Plan Referrals: NONE,PCP [Primary Care Provider] - <Kp Her - Last Filed: 08/04/18 08:02> Date of Encounter: 07/02/18 - Assessment and plan (1) Drug overdose Current Visit: Yes Status: Acute Qualifiers: Encounter type: sequela Injury intent: accidental or unintentional Qualified Code(s): T50.901S - Poisoning by unspecified drugs, medicaments and biological substances, accidental (unintentional), sequela (2) DVT prophylaxis Current Visit: Yes Status: Acute (3) Precipitous delivery Current Visit: Yes Status: Acute (4) Leukocytosis Current Visit: Yes Status: Acute Qualifiers: Leukocytosis type: unspecified Qualified Code(s): D72.829 - Elevated white blood cell count, unspecified (5) Hypokalemia Current Visit: Yes Status: Acute (6) Hypothermia Current Visit: Yes Status: Acute Qualifiers: Encounter type: initial encounter Qualified Code(s): T68.XXXA - Hypothermia , initial encounter - Time Spent With Patient Total time spent is greater than 50% in coordination of care (as documented) at patient's floor/unit and/or counseling patient: Internal Medicine - CN: HPI - Data of Consult Requesting Physician: Kp Her - Consult Narrative History of present illness: Ms. Frazier is a 28 year old female Internal Medicine - CN: Exam - Constitutional Vitals: Temp Pulse Resp BP Pulse Ox 97.9 F 70 16 109/77 94 07/02/18 07:18 07/02/18 07:18 07/02/18 07:18 07/02/18 07:18 07/02/18 07:18 Internal Medicine - CN: Reslt - Labs CBC & Chem 7: 07/02/18 04:06 07/01/18 15:41 Labs: Short CBC 07/01/18 07/01/18 07/02/18 Range/Units 17:42 23:13 04:06 WBC 13.7 H (4.3-11.1) K/mcL Hgb 10.7 L 9.3 L 8.1 L (11.5-15.4) g/dL Hct 30.2 L 25.8 L 23.2 L (35.3-44.9) % Plt Count 168 (140-400) K/mcL Neutrophils # 11.6 H (1.6-8.9) K/mcL - ABG Interpretation ABG results: ABG ABG pH 7.46 pH Units (7.32-7.45) H 07/01/18 17:57 ABG pCO2 28 mmHg (35-45) L 07/01/18 17:57 ABG pO2 129 mmHg (85-104) H 07/01/18 17:57 ABG O2 Saturation 99 % (95-98) H 07/01/18 17:57 - Impressions Impressions Chest X-Ray 07/01/18 17:23 IMPRESSION: No acute pulmonary finding. D/ / Cory Herzog MD / Cory Herzog MD Interpreting Provider: Cory Herzog MD - Attending Attestation Discussed patient with DYANA and agree with assessment and plan as above. Patient is a 28-year-old female who was found unresponsive at a restaurant bathroom with delivery of her baby in the toilet per reports. In the ER, patient was given Narcan with not much response. Patients placenta was delivered by SOFTWARE CLERK and the medicine team was consulted for any further recommendations. On examination of the patient she was alert and oriented 3 but very somnolent and therefore decision was made to transfer patient from the OB department to the progressive stepped-down unit for closer monitoring overnight. Will continue to monitor patient on pulse oximetry and telemetry overnight in addition to supportive care.
[2018-07-01 17:03] LABS: Acetaminophen < 10 mcg/mL (10-20); Alanine Aminotransferase 5 Units/L (7-52); Albumin 3.1 g/dL (3.5-5.7); Albumin/Globulin Ratio 1.6 (1.1-2.2); Alkaline Phosphatase 92 Units/L (34-104); Aspartate Amino Transferase 10 Units/L (13-39); BUN/Creatinine Ratio 10 (6-26); Bilirubin,Indirect 0.3 mg/dL (0.0-1.2); Bilirubin,Total 0.3 mg/dL (0.3-1.0); Blood Urea Nitrogen 5 mg/dL (6-20); Calcium 8.4 mg/dL (8.6-10.3); Carbon Dioxide 19 mEq/L (23-29); Chloride 112 mEq/L (98-107); Ethanol < 10 mg/dL (Less than 10); Glucose 143 mg/dL (70-105); Osmolality,Calculated 288 (280-300); Potassium 3.4 mEq/L (3.5-5.1); Salicylate < 2.5 mg/dL (15.0-30.0); Sodium 139 mEq/L (136-145); Total Protein 5.1 g/dL (6.4-8.9); eGFR For Non-African Americans > 60 (> 60)
[2018-07-01] MEDS ORDERED: Ibuprofen 600 MG TABLET PO PRN (17:15)
[2018-07-01] MEDS ORDERED: Measles/Mumps/Rubella Vacc 0.5 ML VIAL SQ PRN (17:15)
[2018-07-01] MEDS ORDERED: Acetaminophen 325 MG TABLET PO PRN (17:15)
[2018-07-01] MEDS ORDERED: Sennosides 8.6 MG TABLET PO PRN (17:15)
[2018-07-01 17:32] LABS: Hepatitis B Surface Antigen Nonreactive (Nonreactive); Hepatitis C Virus Antibody Nonreactive (Nonreactive)
[2018-07-01 17:43] LABS: HIV-1&2 Antibody & p24 Ag Nonreactive (Nonreactive)
[2018-07-01 18:07] LABS: Hematocrit 30.2 % (35.3-44.9); Hemoglobin 10.7 g/dL (11.5-15.4)
[2018-07-01 18:14] LABS: ABG Base Excess -3 mEq/L (-2 to 3); ABG HCO3 20 mEq/L (21-27); ABG Oxygen Saturation 99 % (95-98); ABG PCO2 28 mmHg (35-45); ABG PH 7.46 pH Units (7.32-7.45); ABG PO2 129 mmHg (85-104); ABG TCO2 21 mEq/L (20-26)
[2018-07-01] MEDS ORDERED: Naloxone 0.4 MG/ML INJ IVP PRN (18:28)
--- NOTE | 2018-07-01 20:19 | OB/GYN Procedure Note ---
Delivery - Delivery Date: 07/01/18 Provider: Siddharth Nelson Intrapartum events: other(please specify) (Delivery outside of hospital, maternal narcotic overdose) Quantitated Blood Loss: 200 - Repair Laceration Description: None - Complications Delivery complications: other (Delivery also the hospital) - Disposition disposition: taken to nursery - Comments Comments: Patient is a 28-year-old female unknown to me, presented by squad after delivering outside hospital. Reportedly by certified bench jeweler technician staff today had been called to [facility] for possible male overdose. While tending to him he stated his girlfriend was in the bathroom having a miscarriage. Paramedics responded to the bathroom where they found her to have already delivered a child in the toilet that did require resuscitative efforts. Patient had stated she was miscarrying and stated that she was approximately 30 weeks later after receiving Narcan she stated she had had care in [place] was approximately 36 weeks . was brought first by [facility] and resuscitation was continued by Dr. Hernandez. Mother was brought separately by second squad and despite having received a dose of Narcan remained quite lethargic and incoherent minimally able to respond to our questioning. After arrival to the ER and initial stabilization by emergency room staff I did inspect perineum there was approximately 100 mL of blood on her thighs and sweatpants. There was no laceration. Placenta was delivered with gentle traction and fundal pressure. The placenta was delivered intact with intact membranes. Total blood loss was approximately 200 mL. was taken nurse her mother was brought to unit after further stabilization in the emergency room.
--- NOTE | 2018-07-01 20:27 | OB/GYN History & Physical ---
Date of Encounter: 07/01/18 Time of Encounter: 20:21 Assessment and Plan (1) Heroin overdose Current visit: Yes Status: Acute Patient being transferred to telemetry for further monitoring Qualifiers: Injury intent: accidental or unintentional Qualified Code(s): T40.1X1A - Poisoning by heroin, accidental (unintentional), initial encounter (2) Hypokalemia Current visit: Yes Status: Acute (3) Hypothermia Current visit: Yes Status: Acute Qualifiers: Encounter type: initial encounter Qualified Code(s): T68.XXXA - Hypothermia , initial encounter (4) Precipitous delivery Current visit: Yes Status: Acute Patient delivered outside of hospital as per history of present illness. Currently placentas then delivered and she is having no acute post delivery problems. History of Present Illness Chief complaint: Delivery outside of hospital during overdose on reported heroin HPI: Ms. Frazier is a 28 year old female apparently 4 para 2 female presents to the emergency room by squad overdosed on narcotics after delivery of infant outside of hospital. History is very limited by patient's continued lethargy even at this time approximately 5 hours after arrival and having received Narcan 3 doses. It is reported that patient is approximately 36 weeks' gestation. Emergency squad was called to [facility] for reportof a male overdose victim. While attending him he reported that his girlfriend was in the bathroom having a miscarriage. (This history is per the autocad). The squad went to the bathroom in [facility] where it was reported that patient stated she was having a miscarriage at approximately 30 weeks' gestation. Infant was found in the toilet attached to the umbilical cord and placenta and reportedly required some stimulation and resuscitation efforts. Cord was clamped and cut and was brought separately from mother to emergency room. Upon arrival to emergency room mother was given additional 2 doses of Narcan remained quite lethargic and minimally responsive. Placenta was delivered without incident intact and total blood loss was approximately 200 mL. She was given Pitocin 10 milliunits IM. Past Med Surg Social Fam HX - Past Medical History Source: old records reviewed Medical history: no medical history, other (Narcotics addiction) Psychiatric history: no psych history - Past Surgical History Surgical History: other (D&C January 2013) - Social History Smoking Status: Current every day smoker Smokeless Tobacco Status: No Alcohol use: none Drug use: opiates, other Obstetrical History - Pregnancies : 4 Ab's: 1 Medications and Allergies Unable To Obtain [Unable to Obtain] 07/01/18 [History] 3 Allergy/AdvReac Type Severity Reaction Status Date / Time No Known Allergies Allergy Verified 12/30/17 16:39 Exam - Vital Signs Vital signs: Initial Vital Signs Temp Pulse Resp BP Pulse Ox 96.2 F L 84 16 93/51 100 07/01/18 15:18 07/01/18 15:18 07/01/18 15:18 07/01/18 15:18 07/01/18 15:18 - Constitutional Constitutional: severe distress, disheveled, thin, dusky, malnourished, cachectic - HEENT HEENT: Pallor, Mucus Membranes Dry - Lungs Respiratory exam: decreased breath sounds, rales - Cardiovascular Cardiovascular exam: RRR - Abdomen Abdomen: Present: non tender Results Result Diagrams: 07/01/18 17:42 07/01/18 15:41 Abnormal lab results WBC 19.7 K/mcL (4.3-11.1) H 07/01/18 15:41 RBC 3.61 M/mcL (3.82-4.97) L 07/01/18 15:41 Hgb 10.7 g/dL (11.5-15.4) L 07/01/18 17:42 Hct 30.2 % (35.3-44.9) L 07/01/18 17:42 Neutrophils # 17.1 K/mcL (1.6-8.9) H 07/01/18 15:41 ABG pH 7.46 pH Units (7.32-7.45) H 07/01/18 17:57 ABG pCO2 28 mmHg (35-45) L 07/01/18 17:57 ABG pO2 129 mmHg (85-104) H 07/01/18 17:57 ABG HCO3 20 mEq/L (21-27) L 07/01/18 17:57 ABG O2 Saturation 99 % (95-98) H 07/01/18 17:57 ABG Base Excess -3 mEq/L (-2 to 3) L 07/01/18 17:57 Potassium 3.4 mEq/L (3.5-5.1) L 07/01/18 15:41 Chloride 112 mEq/L (98-107) H 07/01/18 15:41 Carbon Dioxide 19 mEq/L (23-29) L 07/01/18 15:41 BUN 5 mg/dL (6-20) L 07/01/18 15:41 Creatinine 0.52 mg/dL (0.60-1.20) L 07/01/18 15:41 Glucose 143 mg/dL (70-105) H 07/01/18 15:41 Calcium 8.4 mg/dL (8.6-10.3) L 07/01/18 15:41 AST 10 Units/L (13-39) L 07/01/18 15:41 ALT 5 Units/L (7-52) L 07/01/18 15:41 Serum Total Protein 5.1 g/dL (6.4-8.9) L 07/01/18 15:41 Albumin 3.1 g/dL (3.5-5.7) L 07/01/18 15:41 Globulin 2.0 g/dL (2.4-3.5) L 07/01/18 15:41 Salicylates < 2.5 mg/dL (15.0-30.0) L 07/01/18 15:41 Acetaminophen < 10 mcg/mL (10-20) L 07/01/18 15:41 All other labs normal.
[2018-07-01] MEDS: Oxytocin 20 units/ LR 1000 mL 20 UNIT/1,000 ML BAG IVC SCH (21:04)
[2018-07-01 23:32] LABS: Hematocrit 25.8 % (35.3-44.9); Hemoglobin 9.3 g/dL (11.5-15.4)
[2018-07-02 00:18] LABS: Amphetamine Screen,Urine Negative ng/mL (Cutoff=1000); Barbiturate Screen,Urine Negative ng/mL (Cutoff=200); Benzodiazepines Screen,Urine Positive ng/mL (Cutoff=200); Cannabinoid Screen,Urine Negative ng/mL (Cutoff = 50); Cocaine Screen,Urine Negative ng/mL (Cutoff= 300); Opiate Screen,Urine Positive ng/mL (Cutoff=300); Phencyclidine Screen,Urine Negative ng/mL (Cutoff=25)
[2018-07-02] MEDS: 0.9 % Sodium Chloride 1,000 ML IVC SCH ×2 (04:27→04:46)
[2018-07-02 04:29] LABS: Basophils % 0.1 %; Eosinophils % 0.2 %; Hematocrit 23.2 % (35.3-44.9); Hemoglobin 8.1 g/dL (11.5-15.4); Immature Granulocytes % 0.4 % (0-4); Lymphocytes # 1.4 K/mcL (0.6-4.6); Lymphocytes % 10.5 %; Mean Corpuscular HGB Conc 34.9 g/dL (31.6-35.5); Mean Corpuscular Hemoglobin 30.8 pg (28.0-33.3); Mean Corpuscular Volume 88.2 fL (83.0-100.0); Mean Platelet Volume 10.7 fL (9.4-12.4); Monocytes # 0.5 K/mcL (0.0-1.3); Monocytes % 3.6 %; Neutrophils # 11.6 K/mcL (1.6-8.9); Platelet Count 168 K/mcL (140-400); Red Blood Count 2.63 M/mcL (3.82-4.97); Red Cell Distribution Width 13.2 % (11.5-14.5); Segmented Neutrophils % 85.2 %
[2018-07-02] MEDS: Oxytocin 20 units/ LR 1000 mL 20 UNIT/1,000 ML BAG IVC SCH (04:48)
[2018-07-02 08:34] LABS: BUN/Creatinine Ratio 9 (6-26); Blood Urea Nitrogen 4 mg/dL (6-20); Calcium 8.1 mg/dL (8.6-10.3); Carbon Dioxide 22 mEq/L (23-29); Chloride 110 mEq/L (98-107); Glucose 90 mg/dL (70-105); Osmolality,Calculated 282 (280-300); Sodium 138 mEq/L (136-145); eGFR For Non-African Americans > 60 (> 60)
[2018-07-02] MEDS: Prenatal Vit/FA 1 EACH TABLET PO SCH (10:23)
[2018-07-02] MEDS: Nicotine 21 MG PATCH.TD24 TD SCH (12:02)
--- NOTE | 2018-07-02 15:06 | Internal Med Progress Note ---
Hospitalist Progress Note - Encounter Date of Encounter: 07/02/18 Time of Encounter: 15:02 - Subjective Interval History: No new complain today. Patient denies fever chills nausea vomiting headache dizziness chest pain short of breath. Review the lab with trending down white count. Chest x-ray with no acute finding. Urinalysis not done yet. - Exam Vitals: Temp Pulse Resp BP Pulse Ox 97.3 F L 76 16 102/63 93 07/02/18 10:41 07/02/18 10:41 07/02/18 10:41 07/02/18 10:41 07/02/18 10:41 Exam: General appearance: No acute distress, A&O X 3 Head exam: Atraumatic Eye exam: EOMI, PERRLA ENT exam: Moist oral mucosa Neck nontender, supple Respiratory exam: Clear to auscultation bilaterally Cardiovascular exam: Regular rate and rhythm, no systolic murmur Abdominal exam: Soft, nontender, nondistended, positive bowel sounds Extremities exam: No calf tenderness, no pedal edema Present: Neurological exam: Grossly CN II-XII intact, no focal deficits. No facial droop. Normal speech. Normal gait. - Assessment and Plan (1) Drug overdose Current Visit: Yes Status: Acute Assessment and Plan: Accidental or unintentional drug overdose of unknown source or substance. Pt. is altered/somnolent on exam and only states snorting heroin. First stated three days ago, then reports today. Unclear if this is the only substance used. Urine tox screen positive for benzos and opiates. Alcohol level less than 10. Patient had history of withdrawal in the past therefore will monitor patient closely. Ativan when necessary ordered. Continue cardiac monitoring. Now patient alert awake oriented. Will start clear to advance diet as tolerated. (2) Precipitous delivery Current Visit: Yes Status: Acute Assessment and Plan: Acute and precipitous delivery of infant in [facility] bathroom. According to EMS, pt. was found unresponsive on the toilet and had delivered the precipitously. Pt. received Narcan 2 mg. According to ED, pt. received Narcan 2 mg x2 in ED for total of 6 mg. OB was consulted in ED where placenta was delivered manually by STERILIZATION TECHNICIAN. Hemoglobin trending down with no active bleeding at this time but needs to monitor CBC coming morning. Patient may need blood transfusion if active bleeding or further trending up hemoglobin. (3) Leukocytosis Current Visit: Yes Status: Acute Assessment and Plan: On admission had Concern for sepsis as patient had high white count, hypothermia with precipitous delivery not in ideal hygienic condition with delayed placenta delivery. Blood culture with no growth 24 hour. White count trending down. At present no antibiotic. Will plan to discharge patient possibly tomorrow after following blood culture for 48-hour and morning CBC. (4) Hypokalemia Current Visit: Yes Status: Acute Assessment and Plan: resolved. Monitoring and replacement. (5) Hypothermia Current Visit: Yes Status: Acute Assessment and Plan: Acute hypothermia w/temp of 96.2 rectally on admission. Radiant warming now and continuous core body temperature monitoring. Resolved (6) DVT prophylaxis Current Visit: Yes Status: Acute Assessment and Plan: Bilateral SCDs - Time Spent with Patient Total time spent is greater than 50% in coordination of care (as documented) at patient's floor/unit and/or counseling patient: 25 - 35 minutes Internal Medicine: Result - Labs CBC & Chem 7: 07/02/18 04:06 07/02/18 08:09 Labs: Short CBC 07/01/18 07/01/18 07/02/18 Range/Units 17:42 23:13 04:06 WBC 13.7 H (4.3-11.1) K/mcL Hgb 10.7 L 9.3 L 8.1 L (11.5-15.4) g/dL Hct 30.2 L 25.8 L 23.2 L (35.3-44.9) % Plt Count 168 (140-400) K/mcL Neutrophils # 11.6 H (1.6-8.9) K/mcL BMP 07/02/18 08:09 Sodium 138 Potassium 4.0 Chloride 110 H Carbon Dioxide 22 L BUN 4 L Creatinine 0.44 L Glucose 90 Calcium 8.1 L - ABG Interpretation ABG results: ABG ABG pH 7.46 pH Units (7.32-7.45) H 07/01/18 17:57 ABG pCO2 28 mmHg (35-45) L 07/01/18 17:57 ABG pO2 129 mmHg (85-104) H 07/01/18 17:57 ABG O2 Saturation 99 % (95-98) H 07/01/18 17:57 - Impressions Impressions Chest X-Ray 07/01/18 17:23 IMPRESSION: No acute pulmonary finding. D/ / Cory Herzog MD / Cory Herzog MD Interpreting Provider: Cory Herzog MD - VTE Documentation of Mechanical Device: Intermittent pneumatic compression device Consult Discharge Plan - Plan Referrals: NONE,PCP [Primary Care Provider] - (1) Drug overdose Qualifiers: Qualified Code(s): T50.901S - Poisoning by unspecified drugs, medicaments and biological substances, accidental (unintentional), sequela (3) Leukocytosis Qualifiers: Qualified Code(s): D72.829 - Elevated white blood cell count, unspecified (5) Hypothermia Qualifiers: Qualified Code(s): T68.XXXA - Hypothermia, initial encounter
--- NOTE | 2018-07-02 15:08 | OB/GYN Progress Note ---
Date of Encounter: 07/02/18 Time of Encounter: 14:48 - Assessment and Plan (1) Vaginal delivery Current Visit: Yes Status: Acute Pain well controlled with by mouth pain meds Tolerating regular diet Lochia light Ambulating independently Voiding independently Passing flatus but no BM yet Vital signs stable Discharged from OB care today (2) anemia Current Visit: Yes Status: Acute Iron supplementation twice daily Subjective - Subjective Principal diagnosis: s/p with subsequent overdose Interval history: Ms. Frazier reports she is feeling well today. She is OOB without dizziness. She is tolerating a regular diet. She is voiding independently. She is requesting to go home. Deferred to medicine. OK to discharge from OB standpoint. Patient reports: appetite normal, voiding normally, pain well controlled, ambulating normally : doing well, in NICU, bottle feeding Objective - Latest Vital Signs Latest vital signs: Vital Signs Temp Pulse Pulse Resp BP Pulse Ox 07/02/18 10:41 97.3 F L 76 16 102/63 93 07/02/18 09:00 71 07/02/18 07:18 97.9 F 70 16 109/77 94 07/02/18 04:11 97.8 F 77 18 105/57 96 07/01/18 23:12 98.0 F 75 18 110/75 98 07/01/18 22:00 98.1 F 07/01/18 21:11 98.3 F 07/01/18 20:22 97.8 F 76 19 113/74 100 07/01/18 19:51 97.8 F 69 14 120/75 98 07/01/18 19:00 97.7 F 57 20 114/76 100 07/01/18 18:45 97.6 F 56 20 139/84 100 07/01/18 18:30 97.6 F 69 24 139/84 100 07/01/18 18:15 98.4 F 79 22 128/91 99 07/01/18 18:00 98.3 F 87 22 118/89 99 07/01/18 17:45 98.2 F 84 20 126/77 99 07/01/18 17:15 98.4 F 89 20 118/93 99 07/01/18 16:55 88 22 07/01/18 16:41 20 144/97 Intake and Output 07/01/18 07/02/18 07/02/18 23:59 07:59 15:59 Intake Total 1000 / 1000 Output Total 100 / 100 Balance -100 / -100 1000 / 1000 Intake: IV Fluids 1000 / 1000 Pitocin 20 unit In 1,000 ml @ 1000 / 1000 125 mls/hr IVC .Q8H BELKYS Rx#: [id number] Output: Straight Cath 100 / 100 Other: Meal NPO # Voids 1 Weight 69.853 kg 74.9 kg Blood Glucose* 92 Patient Weight 07/02/18 23:59 Weight 74.9 kg - Exam Lungs: bilateral: normal Chest: Normal S1, Normal S2 Extremities: Present: normal Abdomen: Present: normal appearance, soft Uterus: Present: normal Uterus Position: 3 Fingers Below Umbilicus, Midline - Labs Labs: Laboratory Results - last 24 hr 07/01/18 07/01/18 07/01/18 17:21 17:42 17:57 WBC RBC Hgb 10.7 L Hct 30.2 L MCV MCH MCHC RDW Plt Count MPV Immature Gran % Seg Neutrophils % Lymphocytes % Monocytes % Eosinophils % Basophils % Neutrophils # Lymphocytes # Monocytes # Eosinophils # Basophils # ABG pH 7.46 H ABG pCO2 28 L ABG pO2 129 H ABG HCO3 20 L ABG Total CO2 21 ABG O2 Saturation 99 H ABG Base Excess -3 L O2 Delivery Device Cannula Inspired O2 28.0 Sodium Potassium Chloride Carbon Dioxide BUN Creatinine Est GFR ( Amer) Est GFR (Non-Af Amer) BUN/Creatinine Ratio Glucose Calculated Osmolality Lactic Acid 1.8 Calcium Urine Opiates Screen Ur Barbiturates Screen Ur Phencyclidine Scrn Ur Amphetamines Screen U Benzodiazepines Scrn Urine Cocaine Screen U Marijuana (THC) Screen Ur Drug Screen Interp 07/01/18 07/01/18 07/02/18 22:10 23:13 04:06 WBC 13.7 H RBC 2.63 L Hgb 9.3 L 8.1 L Hct 25.8 L 23.2 L MCV 88.2 MCH 30.8 MCHC 34.9 RDW 13.2 Plt Count 168 MPV 10.7 Immature Gran % 0.4 Seg Neutrophils % 85.2 Lymphocytes % 10.5 Monocytes % 3.6 Eosinophils % 0.2 Basophils % 0.1 Neutrophils # 11.6 H Lymphocytes # 1.4 Monocytes # 0.5 Eosinophils # 0.0 Basophils # 0.0 ABG pH ABG pCO2 ABG pO2 ABG HCO3 ABG Total CO2 ABG O2 Saturation ABG Base Excess O2 Delivery Device Inspired O2 Sodium Potassium Chloride Carbon Dioxide BUN Creatinine Est GFR ( Amer) Est GFR (Non-Af Amer) BUN/Creatinine Ratio Glucose Calculated Osmolality Lactic Acid Calcium Urine Opiates Screen Positive H Ur Barbiturates Screen Negative Ur Phencyclidine Scrn Negative Ur Amphetamines Screen Negative U Benzodiazepines Scrn Positive H Urine Cocaine Screen Negative U Marijuana (THC) Screen Negative Ur Drug Screen Interp See Below 07/02/18 08:09 WBC RBC Hgb Hct MCV MCH MCHC RDW Plt Count MPV Immature Gran % Seg Neutrophils % Lymphocytes % Monocytes % Eosinophils % Basophils % Neutrophils # Lymphocytes # Monocytes # Eosinophils # Basophils # ABG pH ABG pCO2 ABG pO2 ABG HCO3 ABG Total CO2 ABG O2 Saturation ABG Base Excess O2 Delivery Device Inspired O2 Sodium 138 Potassium 4.0 Chloride 110 H Carbon Dioxide 22 L BUN 4 L Creatinine 0.44 L Est GFR ( Amer) > 60 Est GFR (Non-Af Amer) > 60 BUN/Creatinine Ratio 9 Glucose 90 Calculated Osmolality 282 Lactic Acid Calcium 8.1 L Urine Opiates Screen Ur Barbiturates Screen Ur Phencyclidine Scrn Ur Amphetamines Screen U Benzodiazepines Scrn Urine Cocaine Screen U Marijuana (THC) Screen Ur Drug Screen Interp
[2018-07-02] MEDS: *HR* LORazepam 2 MG/ML VIAL IVP PRN ×2 (15:10→21:07)
[2018-07-02 20:24] LABS: Hematocrit 25.4 % (35.3-44.9); Hemoglobin 9.3 g/dL (11.5-15.4)
[2018-07-02 23:37] LABS: Bilirubin,Urine Negative (Negative); Blood,Urine Large (Negative); Clarity,Urine Cloudy (Clear); Color,Urine Yellow (Yellow); Glucose,Urine (UA) Normal (Normal); Ketones,Urine Negative (Negative); Leukocyte Esterase,Urine Small (Negative); Nitrite,Urine Negative (Negative); PH,Urine 7.5 pH Units (5.0-8.0); Protein,Urine Negative (Neg-Trace); Specific Gravity,Urine 1.011 (1.010-1.025); Urobilinogen,Urine Normal (Normal)
[2018-07-02 23:40] LABS: Bacteria,Urine None Seen per hpf (None-Few); Hyaline Casts,Urine None Seen per lpf (None-Few); RBC,Urine 0-3 per hpf (0-3); Squamous Epithelial Cell,Urine Many per lpf (None-Few)
[2018-07-03] MEDS: 0.9 % Sodium Chloride 1,000 ML IVC SCH (01:05)
[2018-07-03 02:44] LABS: Basophils % 0.2 %; Eosinophils % 0.4 %; Hematocrit 23.4 % (35.3-44.9); Hemoglobin 8.2 g/dL (11.5-15.4); Immature Granulocytes % 0.7 % (0-4); Lymphocytes # 1.9 K/mcL (0.6-4.6); Lymphocytes % 20.9 %; Mean Corpuscular Hemoglobin 31.5 pg (28.0-33.3); Mean Platelet Volume 10.7 fL (9.4-12.4); Monocytes # 0.3 K/mcL (0.0-1.3); Neutrophils # 6.8 K/mcL (1.6-8.9); Platelet Count 211 K/mcL (140-400); Red Cell Distribution Width 13.2 % (11.5-14.5); Segmented Neutrophils % 74.8 %
[2018-07-03 02:56] LABS: BUN/Creatinine Ratio 7 (6-26); Blood Urea Nitrogen 3 mg/dL (6-20); Calcium 8.4 mg/dL (8.6-10.3); Carbon Dioxide 23 mEq/L (23-29); Chloride 111 mEq/L (98-107); Glucose 121 mg/dL (70-105); Osmolality,Calculated 288 (280-300); Potassium 3.4 mEq/L (3.5-5.1); Sodium 140 mEq/L (136-145); eGFR For Non-African Americans > 60 (> 60)
[2018-07-03] MEDS: *HR* LORazepam 2 MG/ML VIAL IVP PRN ×2 (03:34→09:36)
[2018-07-03] MEDS ORDERED: *HR* LORazepam 2 MG/ML VIAL IVP ONE (04:27)
[2018-07-03 06:56] VITALS: BP 117/86
[2018-07-03] MEDS: Nicotine 21 MG PATCH.TD24 TD SCH (08:10)
[2018-07-03] MEDS: Prenatal Vit/FA 1 EACH TABLET PO SCH (08:10)
[2018-07-03 08:12] LABS: Hematocrit 24.3 % (35.3-44.9); Hemoglobin 8.7 g/dL (11.5-15.4)
[2018-07-03] MEDS ORDERED: Ondansetron 4 MG/2 ML VIAL IVP PRN (09:08)
--- NOTE | 2018-07-03 10:04 | Internal Med Progress Note ---
Hospitalist Progress Note - Encounter Date of Encounter: 07/03/18 Time of Encounter: 10:02 - Subjective Interval History: Patient has been doing fine overnight. Denies any new fevers or chills or shakes. Her heart rate has been sinus and ranging from 60s to 80s. - Exam Vitals: Temp Pulse Resp BP Pulse Ox 98 F 67 18 117/86 100 07/03/18 06:50 07/03/18 06:50 07/03/18 06:50 07/03/18 06:50 07/03/18 06:50 Exam: GENERAL: Alert, no distress, cooperative EYES: PERRLA, EOMI EARS: External ears normal, canals clear OROPHARYNX: Lips, mucosa, and tongue normal. Teeth and gums normal. Oropharynx normal. NECK: No jugulovenous distention, No carotid bruits, Carotid pulse normal contour, Supple LUNGS: Lungs clear to auscultation, Good diaphragmatic excursion CARDIAC: Normal S1 and S2; no rubs, murmurs, or gallops ABDOMEN: Abdomen soft, non-tender, BS normal, No masses or organomegaly EXTREMITIES: Extremities normal, no deformities, edema, clubbing or skin discoloration. Good capillary refill., No ulcers NEURO: Gait normal. Reflexes normal and symmetric. Sensation grossly intact, Cranial nerves II-XII intact PULSES: 2+ radial, 2+ carotid Rest of the exam is non contributory - Assessment and Plan (1) Drug overdose Current Visit: Yes Status: Acute Assessment and Plan: Accidental or unintentional drug overdose of unknown source or substance. Pt. is altered/somnolent on exam and only states snorting heroin. First stated three days ago, then reports today. Unclear if this is the only substance used. Urine tox screen positive for benzos and opiates. Alcohol level less than 10. Patient had history of withdrawal in the past therefore will monitor patient closely. Ativan when necessary ordered. Continue cardiac monitoring. Now patient alert awake oriented. Will start clear to advance diet as tolerated. 07/03-patient is doing well today. She does have a history of substance abuse and education has been provided regarding cessation. She has been monitored on the stepdown unit and she is now deemed appropriate for discharge. I Would recommend following up with her primary care physician within 1-2 weeks. (2) DVT prophylaxis Current Visit: Yes Status: Acute Assessment and Plan: Bilateral SCDs (3) Precipitous delivery Current Visit: Yes Status: Acute Assessment and Plan: Acute and precipitous delivery of infant in [facility] bathroom. According to EMS, pt. was found unresponsive on the toilet and had delivered the infant precipitously. Pt. received Narcan 2 mg. According to ED, pt. received Narcan 2 mg x2 in ED for total of 6 mg. OB was consulted in ED where placenta was delivered manually by ASSEMBLER ARRANGER. Hemoglobin trending down with no active bleeding at this time but needs to monitor CBC coming morning. Patient may need blood transfusion if active bleeding or further trending up hemoglobin. 07/03-plan as per the primary team. Looks like she is stable as far as obstructed management is concerned. She does have a drop in her hemoglobin which is to be expected if I understand correctly. I would defer to the primary team as far as outpatient management is concerned. She did have a 1 little white count on the time of admission but this has trended down nicely without any antibiotics. Cultures so far have not grown anything and these will need to be followed up upon discharge. This will remain only suggestion to obstetrics. For now medicine service will sign off as there is no other medical issues to be managed at this point. (4) Leukocytosis Current Visit: Yes Status: Acute Assessment and Plan: On admission had Concern for sepsis as patient had high white count, hypothermia with precipitous delivery not in ideal hygienic condition with delayed placenta delivery. Blood culture with no growth 24 hour. White count trending down. At present no antibiotic. Will plan to discharge patient possibly tomorrow after following blood culture for 48-hour and morning CBC. 07/03-see my assessment and plan and recommendations in the above point. (5) Hypokalemia Current Visit: Yes Status: Acute (6) Hypothermia Current Visit: Yes Status: Acute DVT Prophylaxis: Ambulatory - Time Spent with Patient Total time spent is greater than 50% in coordination of care (as documented) at patient's floor/unit and/or counseling patient: 25 - 35 minutes Plan of Care Discussed with: patient (Discussed plan of care with the primary OB team covering. They will be in to discharge the patient today. We will sign off) Internal Medicine: Result - Labs CBC & Chem 7: 07/03/18 07:59 07/03/18 01:43 Labs: Short CBC 07/02/18 07/03/18 07/03/18 Range/Units 20:16 01:43 07:59 WBC 9.1 (4.3-11.1) K/mcL Hgb 9.3 L 8.2 L 8.7 L (11.5-15.4) g/dL Hct 25.4 L 23.4 L 24.3 L (35.3-44.9) % Plt Count 211 (140-400) K/mcL Neutrophils # 6.8 (1.6-8.9) K/mcL BMP 07/03/18 01:43 Sodium 140 Potassium 3.4 L Chloride 111 H Carbon Dioxide 23 BUN 3 L Creatinine 0.41 L Glucose 121 H Calcium 8.4 L Urine 07/02/18 Range/Units 23:30 Urine Color Yellow (Yellow) Urine Clarity Cloudy A (Clear) Urine pH 7.5 (5.0-8.0) pH Units Ur Specific [place] 1.011 (1.010-1.025) Urine Protein Negative (Neg-Trace) mg/dL Urine Glucose (UA) Normal (Normal) mg/dL - ABG Interpretation ABG results: ABG ABG pH 7.46 pH Units (7.32-7.45) H 07/01/18 17:57 ABG pCO2 28 mmHg (35-45) L 07/01/18 17:57 ABG pO2 129 mmHg (85-104) H 07/01/18 17:57 ABG O2 Saturation 99 % (95-98) H 07/01/18 17:57 - VTE Documentation of Mechanical Device: Intermittent pneumatic compression device Consult Discharge Plan - Plan Referrals: NONE,PCP [Primary Care Provider] - (1) Drug overdose Qualifiers: Encounter type: sequela Injury intent: accidental or unintentional Qualified Code(s): T50.901S - Poisoning by unspecified drugs, medicaments and biological substances, accidental (unintentional), sequela (4) Leukocytosis Qualifiers: Leukocytosis type: unspecified Qualified Code(s): D72.829 - Elevated white blood cell count, unspecified (6) Hypothermia Qualifiers: Encounter type: initial encounter Qualified Code(s): T68.XXXA - Hypothermia, initial encounter
--- NOTE | 2018-07-03 10:26 | Discharge Summary ---
Date of Encounter: 07/03/18 Time of Encounter: 10:22 - Discharge Diagnosis (1) Vaginal delivery Priority: Primary Status: Acute Comments: Pain treated with po pain meds VSS Tolerating regular diet Voiding independently Passing flatus but no BM yet Lochia light Discharge today (2) anemia Priority: Secondary Status: Acute Comments: Continue iron twice daily - Discharge Medications Prescriptions: Ibuprofen [Motrin] 600 mg PO Q6HR PRN #30 tablet PRN Reason: Cramping Docusate [Colace] 100 mg PO BID #60 capsule Ferrous Sulfate 325 mg PO BIDWM #60 tablet Home Medications: Acetaminophen [Tylenol] 650 mg PO Q6HR PRN tablet 07/03/18 [Rx] Docusate [Colace] 100 mg PO BID #60 capsule 07/03/18 [Rx] Ferrous Sulfate 325 mg PO BIDWM #60 tablet 07/03/18 [Rx] Ibuprofen [Motrin] 600 mg PO Q6HR PRN #30 tablet 07/03/18 [Rx] Vit/FA 1 each PO DAILY tablet 07/03/18 [Rx] Allergies/Adverse Reactions: 3 Allergy/AdvReac Type Severity Reaction Status Date / Time No Known Allergies Allergy Verified 12/30/17 16:39 Data Procedures and tests throughout hospitalization: Laboratory Tests 07/01/18 07/01/18 07/01/18 17:21 17:42 17:57 WBC RBC Hgb 10.7 L Hct 30.2 L MCV MCH MCHC RDW Plt Count MPV Immature Gran % Seg Neutrophils % Lymphocytes % Monocytes % Eosinophils % Basophils % Neutrophils # Lymphocytes # Monocytes # Eosinophils # Basophils # ABG pH 7.46 H ABG pCO2 28 L ABG pO2 129 H ABG HCO3 20 L ABG Total CO2 21 ABG O2 Saturation 99 H ABG Base Excess -3 L O2 Delivery Device Cannula Inspired O2 28.0 Sodium Potassium Chloride Carbon Dioxide BUN Creatinine Est GFR ( Amer) Est GFR (Non-Af Amer) BUN/Creatinine Ratio Glucose POC Glucose Calculated Osmolality Lactic Acid 1.8 Calcium Urine Color Urine Clarity Urine pH Ur Specific [place] Urine Protein Urine Glucose (UA) Urine Ketones Urine Blood Urine Nitrite Urine Bilirubin Urine Urobilinogen Ur Leukocyte Esterase Urine Microscopic RBC Urine Microscopic WBC Ur Squamous Epith Cells Urine Bacteria Hyaline Casts Urine Opiates Screen Ur Barbiturates Screen Ur Phencyclidine Scrn Ur Amphetamines Screen U Benzodiazepines Scrn Urine Cocaine Screen U Marijuana (THC) Screen Ur Drug Screen Interp Ethyl Alcohol 07/01/18 07/01/18 07/02/18 22:10 23:13 00:11 WBC RBC Hgb 9.3 L Hct 25.8 L MCV MCH MCHC RDW Plt Count MPV Immature Gran % Seg Neutrophils % Lymphocytes % Monocytes % Eosinophils % Basophils % Neutrophils # Lymphocytes # Monocytes # Eosinophils # Basophils # ABG pH ABG pCO2 ABG pO2 ABG HCO3 ABG Total CO2 ABG O2 Saturation ABG Base Excess O2 Delivery Device Inspired O2 Sodium Potassium Chloride Carbon Dioxide BUN Creatinine Est GFR ( Amer) Est GFR (Non-Af Amer) BUN/Creatinine Ratio Glucose POC Glucose 97 Calculated Osmolality Lactic Acid Calcium Urine Color Urine Clarity Urine pH Ur Specific [place] Urine Protein Urine Glucose (UA) Urine Ketones Urine Blood Urine Nitrite Urine Bilirubin Urine Urobilinogen Ur Leukocyte Esterase Urine Microscopic RBC Urine Microscopic WBC Ur Squamous Epith Cells Urine Bacteria Hyaline Casts Urine Opiates Screen Positive H Ur Barbiturates Screen Negative Ur Phencyclidine Scrn Negative Ur Amphetamines Screen Negative U Benzodiazepines Scrn Positive H Urine Cocaine Screen Negative U Marijuana (THC) Screen Negative Ur Drug Screen Interp See Below Ethyl Alcohol 07/02/18 07/02/18 07/02/18 04:06 06:02 08:09 WBC 13.7 H RBC 2.63 L Hgb 8.1 L Hct 23.2 L MCV 88.2 MCH 30.8 MCHC 34.9 RDW 13.2 Plt Count 168 MPV 10.7 Immature Gran % 0.4 Seg Neutrophils % 85.2 Lymphocytes % 10.5 Monocytes % 3.6 Eosinophils % 0.2 Basophils % 0.1 Neutrophils # 11.6 H Lymphocytes # 1.4 Monocytes # 0.5 Eosinophils # 0.0 Basophils # 0.0 ABG pH ABG pCO2 ABG pO2 ABG HCO3 ABG Total CO2 ABG O2 Saturation ABG Base Excess O2 Delivery Device Inspired O2 Sodium 138 Potassium 4.0 Chloride 110 H Carbon Dioxide 22 L BUN 4 L Creatinine 0.44 L Est GFR ( Amer) > 60 Est GFR (Non-Af Amer) > 60 BUN/Creatinine Ratio 9 Glucose 90 POC Glucose 92 Calculated Osmolality 282 Lactic Acid Calcium 8.1 L Urine Color Urine Clarity Urine pH Ur Specific [place] Urine Protein Urine Glucose (UA) Urine Ketones Urine Blood Urine Nitrite Urine Bilirubin Urine Urobilinogen Ur Leukocyte Esterase Urine Microscopic RBC Urine Microscopic WBC Ur Squamous Epith Cells Urine Bacteria Hyaline Casts Urine Opiates Screen Ur Barbiturates Screen Ur Phencyclidine Scrn Ur Amphetamines Screen U Benzodiazepines Scrn Urine Cocaine Screen U Marijuana (THC) Screen Ur Drug Screen Interp Ethyl Alcohol 07/02/18 07/02/18 07/03/18 20:16 23:30 01:43 WBC 9.1 RBC 2.60 L Hgb 9.3 L 8.2 L Hct 25.4 L 23.4 L MCV 90.0 MCH 31.5 MCHC 35.0 RDW 13.2 Plt Count 211 MPV 10.7 Immature Gran % 0.7 Seg Neutrophils % 74.8 Lymphocytes % 20.9 Monocytes % 3.0 Eosinophils % 0.4 Basophils % 0.2 Neutrophils # 6.8 Lymphocytes # 1.9 Monocytes # 0.3 Eosinophils # 0.0 Basophils # 0.0 ABG pH ABG pCO2 ABG pO2 ABG HCO3 ABG Total CO2 ABG O2 Saturation ABG Base Excess O2 Delivery Device Inspired O2 Sodium Potassium Chloride Carbon Dioxide BUN Creatinine Est GFR ( Amer) Est GFR (Non-Af Amer) BUN/Creatinine Ratio Glucose POC Glucose Calculated Osmolality Lactic Acid Calcium Urine Color Yellow Urine Clarity Cloudy A Urine pH 7.5 Ur Specific [place] 1.011 Urine Protein Negative Urine Glucose (UA) Normal Urine Ketones Negative Urine Blood Large H Urine Nitrite Negative Urine Bilirubin Negative Urine Urobilinogen Normal Ur Leukocyte Esterase Small H Urine Microscopic RBC 0-3 Urine Microscopic WBC 5-15 H Ur Squamous Epith Cells Many H Urine Bacteria None Seen Hyaline Casts None Seen Urine Opiates Screen Ur Barbiturates Screen Ur Phencyclidine Scrn Ur Amphetamines Screen U Benzodiazepines Scrn Urine Cocaine Screen U Marijuana (THC) Screen Ur Drug Screen Interp Ethyl Alcohol 07/03/18 07/03/18 07/03/18 01:43 01:43 07:59 WBC RBC Hgb 8.7 L Hct 24.3 L MCV MCH MCHC RDW Plt Count MPV Immature Gran % Seg Neutrophils % Lymphocytes % Monocytes % Eosinophils % Basophils % Neutrophils # Lymphocytes # Monocytes # Eosinophils # Basophils # ABG pH ABG pCO2 ABG pO2 ABG HCO3 ABG Total CO2 ABG O2 Saturation ABG Base Excess O2 Delivery Device Inspired O2 Sodium 140 Potassium 3.4 L Chloride 111 H Carbon Dioxide 23 BUN 3 L Creatinine 0.41 L Est GFR ( Amer) > 60 Est GFR (Non-Af Amer) > 60 BUN/Creatinine Ratio 7 Glucose 121 H POC Glucose Calculated Osmolality 288 Lactic Acid Calcium 8.4 L Urine Color Urine Clarity Urine pH Ur Specific [place] Urine Protein Urine Glucose (UA) Urine Ketones Urine Blood Urine Nitrite Urine Bilirubin Urine Urobilinogen Ur Leukocyte Esterase Urine Microscopic RBC Urine Microscopic WBC Ur Squamous Epith Cells Urine Bacteria Hyaline Casts Urine Opiates Screen Ur Barbiturates Screen Ur Phencyclidine Scrn Ur Amphetamines Screen U Benzodiazepines Scrn Urine Cocaine Screen U Marijuana (THC) Screen Ur Drug Screen Interp Ethyl Alcohol < 10 Labs on day of discharge: Labs from last 24 hours 07/03/18 07/03/18 07/03/18 07:59 01:43 01:43 WBC RBC Hgb 8.7 L Hct 24.3 L MCV MCH MCHC RDW Plt Count MPV Immature Gran % Seg Neutrophils % Lymphocytes % Monocytes % Eosinophils % Basophils % Neutrophils # Lymphocytes # Monocytes # Eosinophils # Basophils # Sodium 140 Potassium 3.4 L Chloride 111 H Carbon Dioxide 23 BUN 3 L Creatinine 0.41 L Est GFR ( Amer) > 60 Est GFR (Non-Af Amer) > 60 BUN/Creatinine Ratio 7 Glucose 121 H POC Glucose Calculated Osmolality 288 Calcium 8.4 L Urine Color Urine Clarity Urine pH Ur Specific [place] Urine Protein Urine Glucose (UA) Urine Ketones Urine Blood Urine Nitrite Urine Bilirubin Urine Urobilinogen Ur Leukocyte Esterase Urine Microscopic RBC Urine Microscopic WBC Ur Squamous Epith Cells Urine Bacteria Hyaline Casts Ethyl Alcohol < 10 07/03/18 07/02/18 07/02/18 01:43 23:30 20:16 WBC 9.1 RBC 2.60 L Hgb 8.2 L 9.3 L Hct 23.4 L 25.4 L MCV 90.0 MCH 31.5 MCHC 35.0 RDW 13.2 Plt Count 211 MPV 10.7 Immature Gran % 0.7 Seg Neutrophils % 74.8 Lymphocytes % 20.9 Monocytes % 3.0 Eosinophils % 0.4 Basophils % 0.2 Neutrophils # 6.8 Lymphocytes # 1.9 Monocytes # 0.3 Eosinophils # 0.0 Basophils # 0.0 Sodium Potassium Chloride Carbon Dioxide BUN Creatinine Est GFR ( Amer) Est GFR (Non-Af Amer) BUN/Creatinine Ratio Glucose POC Glucose Calculated Osmolality Calcium Urine Color Yellow Urine Clarity Cloudy A Urine pH 7.5 Ur Specific [place] 1.011 Urine Protein Negative Urine Glucose (UA) Normal Urine Ketones Negative Urine Blood Large H Urine Nitrite Negative Urine Bilirubin Negative Urine Urobilinogen Normal Ur Leukocyte Esterase Small H Urine Microscopic RBC 0-3 Urine Microscopic WBC 5-15 H Ur Squamous Epith Cells Many H Urine Bacteria None Seen Hyaline Casts None Seen Ethyl Alcohol 07/02/18 07/02/18 06:02 00:11 WBC RBC Hgb Hct MCV MCH MCHC RDW Plt Count MPV Immature Gran % Seg Neutrophils % Lymphocytes % Monocytes % Eosinophils % Basophils % Neutrophils # Lymphocytes # Monocytes # Eosinophils # Basophils # Sodium Potassium Chloride Carbon Dioxide BUN Creatinine Est GFR ( Amer) Est GFR (Non-Af Amer) BUN/Creatinine Ratio Glucose POC Glucose 92 97 Calculated Osmolality Calcium Urine Color Urine Clarity Urine pH Ur Specific [place] Urine Protein Urine Glucose (UA) Urine Ketones Urine Blood Urine Nitrite Urine Bilirubin Urine Urobilinogen Ur Leukocyte Esterase Urine Microscopic RBC Urine Microscopic WBC Ur Squamous Epith Cells Urine Bacteria Hyaline Casts Ethyl Alcohol Preliminary micro results at discharge 07/01/18 17:42 Blood Culture - Preliminary Peripheral Venipuncture Culture is incubating and being continuously monitored for growth. Final report to follow. 07/01/18 17:42 Blood Culture - Preliminary Peripheral Venipuncture Culture is incubating and being continuously monitored for growth. Final report to follow. - Impressions ITS Impressions Chest X-Ray 07/01/18 17:23 IMPRESSION: No acute pulmonary finding. D/ / Cory Herzog MD / Cory Herzog MD Interpreting Provider: Cory Herzog MD Date of admission: 07/01/18 16:04 Primary care physician: PCP NONE Consults: 07/01/18 17:15 Consult to Lamp Developer [CONS] Routine Reason for SW Consult: Overdose; delivered in toilet at home. Discharging clinician: Jennie Lang Anticipated date of discharge: 07/03/18 - Patient Status Disposition: Home, Self-Care Condition: Good Functional capacity at discharge: independent ambulation Overall status at discharge: patient is progressing back to baseline - Discharge Instructions Follow Up With: NONE,PCP [Primary Care Provider] - Siddharth Nelson MD [Partnered Physician] - - Diet and Activity Activity: increase activity as tolerated Diet: regular diet Hospital Course Reason for admission: IUP at term, other (Pre-hospital delivery) Delivery: Episiotomy: none Laceration: none Other procedures: none complications: none Discharge diagnosis: IUP at term delivered baby: male Time Attestation: Total time spent providing and/or coordinating discharge services: Time Spent: Less than 30 minutes Exam - Constitutional Vitals: Temp Pulse Resp BP Pulse Ox 98 F 67 18 117/86 100 07/03/18 06:50 07/03/18 06:50 07/03/18 06:50 07/03/18 06:50 07/03/18 06:50 General appearance IM: A&O X 3 - Respiratory Respiratory exam: Present: CTAB - Cardiovascular Cardiovascular exam IM: Present: RRR, +S1, +S2 - GI/Abdominal GI/Abdominal exam IM: normal bowel sounds, no peritoneal signs - Rectal Rectal exam: deferred - Uterine Tone: Firm Uterus Position: 1 Finger Below Umbilicus, Midline - Extremities Exam Extremities exam IM: Present: normal capillary refill, normal inspection, radial pulses palpable and symmetrical - Neurological Exam Neurological exam: alert, CN II-XII intact, normal gait, oriented X3, reflexes normal, no focal deficits, strengths equal and symetr throughout
--- NOTE | 2018-07-04 08:52 | Electrocardiograph Report ---
[place] [id number] Test Date: 2018-07-01 Pat Name: Natasha Frazier Department: 103 Room: 2N04 Gender: F [employer] Principal: EKP : [id number] Requested By: [id number] Order Number: [id number] Reading MD: Kushal Diaz Measurements Intervals [place] Rate: 78 P: 24 OK: 119 QRS: 20 QRSD: 82 T: -7 QT: 372 QTc: 405 Interpretive Statements SINUS RHYTHM WITH SHORT OK INTERVAL NONSPECIFIC T-WAVE ABNORMALITY Electronically Signed On 07-04-2018 8:51:34 EDT by Kushal Diaz
[2018-07-24 18:56] LABS: Amphetamines NEGATIVE ng/mL (Cutoff 30); Barbiturates NEGATIVE ng/mL (Cutoff 75); Cocaine NEGATIVE ng/mL (Cutoff 30); Methadone NEGATIVE ng/mL (Cutoff 40); Methamphetamines NEGATIVE ng/mL (Cutoff 30); Phencyclidine NEGATIVE ng/mL (Cutoff 15)
[2018-07-25 10:09] LABS: Benzodiazepines POSITIVE ng/mL (Cutoff 75); Opiates POSITIVE ng/mL (Cutoff 30)
[2018-07-27 00:42] LABS: Hydrocodone Confirmation <2 ng/mL
[2018-07-27 11:04] LABS: 6_Acetylmorphine Confirmation <2 ng/mL; Oxymorphone Confirmation <2 ng/mL
[2018-07-28 22:26] LABS: 7-aminoclonazepam Conf <5 ng/mL; Alpha-hydroxyalprazolam Conf <5 ng/mL; Chlordiazepoxide Conf <20 ng/mL; Clonazepam Conf <5 ng/mL; Lorazepam Confirmation <20 ng/mL; Midazolam Confirmation <20 ng/mL; Oxazepam Confirmation <20 ng/mL; Temazepam Confirmation <20 ng/mL
[2018-07-29 07:47] LABS: Alprazolam Confirmation 223 ng/mL; Diazepam Confirmation 139 ng/mL; Nordiazepam Confirmation 27 ng/mL
== END 2018-07-03 11:03 | disposition home or self-care (01) | DRG 560 ==
LOC: EMEROO 15:16 → 1NENUOBS 16:04 → SUATTDRO 16:04 → 1NENUOBS 16:43 → 2NNU 20:18
PROVIDERS: ADMIT Hospitalist; ATTEND Internal Medicine